=== PATIENT | female | born 1975 | race Caucasian/White ===

== ENCOUNTER → 2017-05-30 12:50 | Outpatient (CLI) | payer BC, SELFPAY ==
--- NOTE | 2017-05-30 12:58 | MM_ITS ---
MM Dig mamm BI DX w/CAD COMPARISON: 05/02/2016, 05/13/2016, 11/28/2016 INDICATION: Follow-up abnormal mammogram/calcifications ORDERING PHYSICIAN: Jhonny Romo MD PATIENT AGE: 41 years TECHNIQUE: Standard images are performed of both breasts along with spot compression mag views and MLO views of the right breast FINDINGS: There is average fibroglandular tissue. Scattered benign-appearing calcifications are once again noted. Left breast: On the left there is a asymmetric area of increased density in the retroareolar region measuring 7 mm. This is not readily apparent on the previous exam probably related to overlapping fibroglandular tissue not readily apparent on the cc view. This was not recognized on the initial screening of the exam Benign-appearing calcifications are present on the left. Right breast: Scattered benign-appearing calcifications are noted. These are loosely scattered not significant changed compared to the previous exams and are felt to be benign. No new suspicious calcifications are evident. IMPRESSION: Benign findings. Calcifications are felt to be benign and not significant change. There is a area of asymmetric density in the retroareolar region on the left MLO view probably related to overlapping fibroglandular tissue this was not appreciated when the mammogram was checked. Would recommend patient return at no additional charge for spot compression views of this area and nipple profile in the MLO for confirmation. BI-RADS Category: 3 Benign Finding Short Term Follow-up RECOMMENDED FOLLOW-UP: IMM - IMMEDIATE FOLLOW-UP RECOMMENDED Recommend patient return at her convenience at no additional charge for spot views of the retroareolar region on the left and nipple profile MLO view to confirm the area of asymmetric density corresponds to fibroglandular tissue The right breast has a stable appearance with benign-appearing calcifications and can be followed in one year (A letter has been sent to the patient regarding results of the study.)
== END ==
PROVIDERS: Family Provider Family Medicine Addiction Medicine; PCP Family Medicine; Visit Provider Nurse Practitioner Obstetrics & Gynecology
DX: R92.8 Other abnormal and inconclusive findings on diagnostic imaging of breast (principal)
CPT/HCPCS: 77066

== ENCOUNTER → 2017-06-03 07:53 | Outpatient (CLI) | payer BC, SELFPAY ==
[2017-06-03 08:19] LABS: Basophils % 0.4 % (0.1-2.0); Eosinophils # 0.1 K/mm3 (0.0-0.4); Eosinophils % 1.3 % (0.1-12.0); Hematocrit 42.4 % (37.0-47.0); Hemoglobin 13.6 g/dL (12.2-16.2); Lymphocytes # 2.7 K/mm3 (0.7-4.5); Lymphocytes % 44.1 K/mm3 (10-50); Mean Corpuscular HGB Conc 32.1 g/dL (31.8-35.4); Mean Corpuscular Hemoglobin 30.6 pg (27.0-31.2); Mean Corpuscular Volume 95.4 fl (81-99); Monocytes # 0.4 K/mm3 (0.1-1.0); Monocytes % 5.7 % (1.7-9.3); Neutrophils % 48.5 % (37.0-80.0); Platelet Count 348 K/mm3 (142-424); Red Blood Count 4.44 M/mm3 (4.20-5.40); Red Cell Distribution Width 13.2 % (11.5-17.5); White Blood Count 6.2 K/mm3 (4.8-10.8)
[2017-06-03 08:44] LABS: Hemoglobin A1C 5.5 % (0.0-7.0)
[2017-06-03 09:09] LABS: Alanine Aminotransferase 18 U/L (12-78); Albumin Level 3.8 gm/dL (3.4-5.0); Albumin/Globulin Ratio 1.2 (1.1-1.8); Alkaline Phosphatase 78 U/L (46-116); Anion Gap 14.2 mEq/L (5-15); Aspartate Amino Transferase 14 U/L (15-37); Bilirubin,Total 0.6 mg/dL (0.2-1.0); Blood Urea Nitrogen 17 mg/dL (7-18); Calcium 8.7 mg/dL (8.5-10.1); Carbon Dioxide 26 mmol/L (21.0-32.0); Chloride 106 mmol/L (98-107); Chol/HDL Ratio 3.1 (1-3.5); Cholesterol 175 mg/dL (140-200); Creatinine,Serum 0.67 mg/dL (0.55-1.02); Estimated Glomerular Filt Rate 97 ml/min (>60); GFR (African American) 117 ML/MIN (>60); Globulin 3.2 gm/dl (1.3-3.2); Glucose 96 mg/dL (74-106); HDL Cholesterol 57 mg/dL (29-89); LDL Cholesterol 99 mg/dL (0-130); Potassium 4.2 mmoL/L (3.5-5.1); Sodium 142 mmol/L (136-145); Thyroid Stimulating Hormone 1.39 uIU/ml (0.358-3.740); Triglycerides 97 mg/dL (30-200); VLDL Cholesterol 19 mg/dL (0-40)
[2017-06-06 06:03] LABS: Vitamin D 25 Hydroxy 25.2 ng/mL (30.0-100.0)
[2017-06-06 06:04] LABS: Vitamin B12 431 pg/mL (232-1245)
== END ==
PROVIDERS: PCP Family Medicine; Visit Provider Family Medicine
DX: E03.9 Hypothyroidism, unspecified (principal); E78.2 Mixed hyperlipidemia; E53.8 Deficiency of other specified B group vitamins; Z68.43 Body mass index [BMI] 50.0-59.9, adult; Z13.21 Encounter for screening for nutritional disorder
CPT/HCPCS: 36415; 80053; 80061; 82607; 82652; 83036; 84443; 85025

== ENCOUNTER → 2017-06-19 12:58 | Outpatient (CLI) | payer BC, SELFPAY ==
--- NOTE | 2017-06-19 15:11 | US_ITS ---
US breast LT complete Additional mammographic images left breast: COMPARISON: 05/30/2017 INDICATION: Asymmetric density in the retroareolar region on the left. ORDERING PHYSICIAN: Jhonny Romo MD PATIENT AGE: 41 years TECHNIQUE: The patient returns for spot compression views of the an asymmetric density in the left retroareolar region. FINDINGS: There is overall increase in fibroglandular tissue compared to an older ultrasound of 05/02/2016. Asymmetric density is present in the retroareolar region with some benign-appearing calcifications. This compressed out on the cc spot compression view but persisted on the MLO view and ML view highly related to overlying fibroglandular tissue. Left breast ultrasound: No sonographic abnormality is evident. Specifically, there is no obvious mass in the retroareolar region. IMPRESSION: Probably benign findings involving both breasts. No convincing evidence of malignancy BI-RADS Category: 3 Benign Finding Short Term Follow-up RECOMMENDED FOLLOW-UP: 6M - 6 MONTH FOLLOW-UP; Bilateral 6 month mammographic follow-up (A letter has been sent to the patient regarding results of the study.)
== END ==
PROVIDERS: Family Provider Family Medicine Addiction Medicine; PCP Family Medicine; Visit Provider Nurse Practitioner Obstetrics & Gynecology
DX: R92.8 Other abnormal and inconclusive findings on diagnostic imaging of breast (principal)
CPT/HCPCS: 76641

== ENCOUNTER → 2017-06-19 14:47 | Outpatient (POV) | payer BC, SELFPAY | PROVIDERS: Family Provider Family Medicine Addiction Medicine; PCP Family Medicine; Visit Provider Nurse Practitioner Acute Care | DX: Z00.00 Encounter for general adult medical examination without abnormal findings (principal) ==

== ENCOUNTER → 2018-03-12 13:36 | Outpatient (CLI) | payer BC, SELFPAY ==
--- NOTE | 2018-03-12 13:38 | MM_ITS ---
MM Dig mamm BI DX w/CAD INDICATION: Follow-up abnormal mammogram ORDERING PHYSICIAN: Jhonny Romo MD PATIENT AGE: 42 years COMPARISON: 05/30/2017, 05/02/2016 TECHNIQUE: Standard images performed along with spot compression Bar spot compression views. FINDINGS: Right breast: Average fibroglandular tissue. There are scattered loosely clustered calcifications in the retroareolar region and lateral aspect of the right breast do not appear significantly changed and are probably benign. Some of these calcifications do appear to layer as milk of calcium. No malignant appearing mass or malignant appearing microcalcification. Left breast: No malignant appearing mass or malignant appearing microcalcification. Previously noted retroareolar density is less apparent on today's images and was felt to be due to overlying fibroglandular tissue. IMPRESSION: No evidence of malignancy. Benign findings. BI-RADS Category: 2 Benign Finding(s) RECOMMENDED FOLLOW-UP: 1YR - 1 YEAR FOLLOW-UP (A letter has been sent to the patient regarding results of the study.)
== END ==
PROVIDERS: PCP Family Medicine; Visit Provider Nurse Practitioner Obstetrics & Gynecology
DX: R92.8 Other abnormal and inconclusive findings on diagnostic imaging of breast (principal)
CPT/HCPCS: 77066

== ENCOUNTER → 2018-07-27 13:58 | Outpatient (CLI) | payer BC, SELFPAY ==
--- NOTE | 2018-07-27 14:03 | NVE_ITS ---
Venous Exam IMPRESSIONS No evidence of deep or superficial vein thrombosis involving the veins of the right upper extremity History: Right upper extremity pain. Swelling in the right upper extermity. Risk factors: Family history of deep vein thrombosis. Hypertension. 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 Patient states she recently was "adjusted" by a chiropractor and had problems in neck and right arm since. There is some noted edema in the right antecubital region with streaking visualized. Right upper extremity venous duplex. Doppler flow study including spectral analysis, color and bruno scale imaging. Location: Vascular laboratory. Patient status: Outpatient. CRITICAL FINDINGS - Reported to: Dr. Ambrose - Read back and verified. - 07/27/18 - 14:40 - RLE negative for DVT or SVT Tables: Venous flow and imaging: + + + Location Flow properties + + + Right internal jugular Normal phasicity; spontaneous; compressible + + + Right subclavian Normal phasicity; spontaneous; normal augmentation; compressible + + + Right axillary Normal phasicity; spontaneous; normal augmentation; compressible + + + Right brachial Normal phasicity; spontaneous; normal augmentation; compressible + + + Right cephalic Normal phasicity; spontaneous; normal augmentation; compressible + + + Right basilic Normal phasicity; spontaneous; normal augmentation; compressible + + + Right radial Compressible + + + Right ulnar Compressible + + + Left subclavian Normal phasicity; spontaneous; normal augmentation; compressible + + + (Report amended ) Electronically signed by: Luis Brandon [id number]
== END ==
PROVIDERS: PCP Family Medicine; Visit Provider Emergency Medicine
DX: M79.89 Other specified soft tissue disorders (principal)
CPT/HCPCS: 93971

== ENCOUNTER → 2019-03-11 09:17 | Outpatient (CLI) | payer BC, SELFPAY | PROVIDERS: PCP Family Medicine; Visit Provider Urology | DX: R07.9 Chest pain, unspecified (principal); I11.9 Hypertensive heart disease without heart failure; R06.83 Snoring; R53.83 Other fatigue; R40.0 Somnolence; Z86.79 Personal history of other diseases of the circulatory system | CPT/HCPCS: G0399 ==

== ENCOUNTER → 2019-03-18 12:49 | Outpatient (CLI) | payer BC, SELFPAY ==
[2019-03-18 14:20] LABS: Anion Gap 14.2 mEq/L (5-15); Blood Urea Nitrogen 19 mg/dL (7-18); Carbon Dioxide 26 mmol/L (21.0-32.0); Chloride 104 mmol/L (98-107); Creatinine,Serum 0.81 mg/dL (0.55-1.02); Estimated Glomerular Filt Rate 77 ml/min (>60); GFR (African American) 93 ML/MIN (>60); Glucose 100 mg/dL (74-106); Potassium 4.2 mmoL/L (3.5-5.1); Sodium 140 mmol/L (136-145)
== END ==
PROVIDERS: Visit Provider Urology
DX: R07.9 Chest pain, unspecified (principal); I11.9 Hypertensive heart disease without heart failure; E78.5 Hyperlipidemia, unspecified; Z86.79 Personal history of other diseases of the circulatory system
CPT/HCPCS: 36415; 80048

== ENCOUNTER → 2019-07-02 14:07 | Outpatient (CLI) | payer BC, SELFPAY ==
[2019-07-02 14:27] LABS: Adenovirus F 40/41, stool Not Detected (NotDetected); Astrovirus Not Detected (NotDetected); Campylobacter Not Detected (NotDetected); Clostridium Difficile A/B, PCR Not Detected (NotDetected); Cryptosporidium Not Detected (NotDetected); Cyclospora Cayetanesis Not Detected (NotDetected); Entamoeba histolytica Not Detected (NotDetected); Enteroaggregative E coli Not Detected (NotDetected); Enteropathogenic E coli Not Detected (NotDetected); Enterotoxigenic E coli Not Detected (NotDetected); Giardia lamblia Not Detected (NotDetected); Norovirus Not Detected (NotDetected); Plesimonas Shigalloides, PCR Not Detected (NotDetected); Rotavirus A Not Detected (NotDetected); Salmonella, PCR Not Detected (NotDetected); Sapovirus Not Detected (NotDetected); Shiga-like toxin E coli Not Detected (NotDetected); Shigella Enterovasive E coli Not Detected (NotDetected); Vibrio Cholerae Not Detected (NotDetected); Vibrio, PCR Not Detected (NotDetected); Yersinia Entercolitica, PCR Not Detected (NotDetected)
== END ==
PROVIDERS: Visit Provider Nurse Practitioner Family
DX: R19.7 Diarrhea, unspecified (principal)
CPT/HCPCS: 87507

== ENCOUNTER → 2019-07-12 09:30 | Outpatient (CLI) | payer BC, SELFPAY ==
--- NOTE | 2019-07-12 09:38 | CT_ITS ---
PROCEDURE: CT ABDOMEN WO CON CLINICAL HISTORY: NAUSEA,ABD PAIN COMPARISON: ABDPELW/O CT ABD PELVIS W/O CONTRAST from 07/31/2016 TECHNIQUE: Oral Contrast: Readi-Cat was given IV Contrast: None Axial images obtained with sagittal and coronal reformats. All CT scans at the facility use one or more dose reduction, viz: automated exposure control, ma/kV adjustment per patient size (including targeted exams where dose is matched to indication, i.e. head), or iterative reconstruction technique. Axial images obtained with sagittal and coronal reformats. All CT scans at the facility use one or more dose reduction, viz: automated exposure control, ma/kV adjustment per patient size (including targeted exams where dose is matched to indication, i.e. head), or iterative reconstruction technique. . FINDINGS: Scans through the lower chest show stable subpleural calcified granuloma right costophrenic angle. The lower lung amezquita are clear. 1 the liver and spleen appear normal. 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 There is a small to moderate-sized sliding hiatal hernia. The patient is post cholecystectomy. Pancreas appears normal. The adrenal glands are normal. The kidneys are normal in size and no calculi and there is no obstructive uropathy. The visualized portion of the contrast filled small bowel appears normal. Visualized portion of the ascending and descending colon appear normal. There is a small umbilical hernia containing fat only basically stable and unchanged in appearance from the previous exam. IMPRESSION: Findings as described, no acute abdominal pathology identified Dictated by: Dr. Jonas Hathaway MD 07/12/2019 10:[address] Jonas Hathaway MD in [place] 07/12/2019 10:40
== END ==
PROVIDERS: PCP Family Medicine; Visit Provider Nurse Practitioner Family
DX: R10.9 Unspecified abdominal pain (principal); R11.0 Nausea
CPT/HCPCS: 74150

== ENCOUNTER → 2019-08-12 14:03 | Outpatient (CLI) | payer BC, SELFPAY ==
[2019-08-12 15:18] LABS: Basophils % 0.4 % (0.1-2.0); Eosinophils % 0.5 % (0.1-12.0); Hematocrit 35.2 % (37.0-47.0); Hemoglobin 11.3 g/dL (12.2-16.2); Mean Corpuscular HGB Conc 32.1 g/dL (31.8-35.4); Mean Corpuscular Hemoglobin 29.6 pg (27.0-31.2); Mean Corpuscular Volume 92.1 fl (81-99); Mean Platelet Volume 7.8 fl (7.4-10.4); Monocytes # 0.4 K/mm3 (0.1-1.0); Monocytes % 5.5 % (1.7-9.3); Neutrophils # 4.2 K/mm3 (1.8-7.8); Neutrophils % 63.6 % (37.0-80.0); Platelet Count 283 K/mm3 (142-424); Red Blood Count 3.83 M/mm3 (4.20-5.40); Red Cell Distribution Width 14.2 % (11.5-17.5); White Blood Count 6.7 K/mm3 (4.8-10.8)
[2019-08-12 16:34] LABS: Chloride 103 mmol/L (98-107); Potassium 4.1 mmoL/L (3.5-5.1); Sodium 136 mmol/L (136-145)
[2019-08-12 16:37] LABS: Anion Gap 9.1 mEq/L (5-15); Blood Urea Nitrogen 14 mg/dl (7-17); Carbon Dioxide 28 mmol/L (22.0-30.0); Estimated Glomerular Filt Rate 109 ml/min (>60); GFR (African American) 131 ML/MIN (>60)
[2019-08-12 16:38] LABS: Calcium 8.9 mg/dl (8.4-10.2); Glucose 84 mg/dl (74-100)
[2019-08-12 16:51] LABS: Free T4 (Free Thyroxine) 1.11 ng/dl (0.78-2.19)
[2019-08-12 17:00] LABS: Troponin I < 0.01 ng/ml (0.00-0.034)
[2019-08-12 17:15] LABS: Thyroid Stimulating Hormone 3.55 uIU/mL (0.465-4.68)
== END ==
PROVIDERS: Visit Provider Urology
DX: R00.2 Palpitations (principal); R07.9 Chest pain, unspecified; E78.2 Mixed hyperlipidemia; I11.9 Hypertensive heart disease without heart failure; Z86.79 Personal history of other diseases of the circulatory system
CPT/HCPCS: 36415; 80048; 84439; 84443; 84484; 85025; 93270

== ENCOUNTER → 2019-09-09 07:52 | Outpatient (CLI) | payer BC, SELFPAY ==
--- NOTE | 2019-09-09 07:56 | CA_ITS ---
APPROVED REPORT EXAM: Comprehensive 2D, Doppler, and color-flow Echocardiogram Claim Manager: Felicia Morgan RDCS Ht: 5 ft 6 in Wt: 247lbs BSA: 2.19 BP: 128/79 mmHg Indications: PALPS,CP,HTN,HLP 2D Dimensions LVOT 1.96 cm (M/F) 1.5-2.5 M-Mode Dimensions RVDd 3.42 cm (0.9-2.6) LVDd 5.25 cm (3.5-5.7) LVDs 3.76 cm (3.5-5.7) IVSd 0.76 cm (0.6-1.1) PWd 0.76 cm (0.6-1.1) EF (Teich) 54.40% FS 28.40% EDV (Teich) 132.40 mL ESV (Teich) 60.40 mL LV Diastology E/A Ratio 1.42 Mitral Valve MV A Velocity 53.00 (40-130 cm/s) Left Ventricle Left atrium is normal size, left ventricle is normal size, there is no concentric left ventricular hypertrophy, visually estimated ejection fraction 55% with no regional wall motion abnormality, diastolic parameters are within normal range. Right Ventricle Right atrium and right ventricle are mildly enlarged with normal contractility. Aortic Valve Aortic valve is grossly normal, there is no aortic stenosis or aortic insufficiency. Mitral Valve Mitral valve is grossly normal, there is mild mitral regurgitation. Tricuspid Valve Tricuspid valve is grossly normal, there is mild tricuspid regurgitation, calculated right ventricular systolic pressure is 48 mmHg. Pulmonic Valve Pulmonic valve is poorly visualized. Great Vessels Aortic root is normal size. Pericardium No significant pericardial effusion noted. Conclusion 1. Normal left ventricular size, preserved left ventricular systolic function, visually estimated ejection fraction of 55% with no regional wall motion abnormality, diastolic parameters are within normal range. 2. Mildly enlarged right ventricle with normal contractility. 3. Mild mitral and tricuspid regurgitation, calculated right ventricular systolic pressure is 48 mmHg. 4. No significant pericardial effusion noted. Electronically signed by : Wai Mensah, 09/09/2019 19:10:10
== END ==
PROVIDERS: PCP Family Medicine; Visit Provider Urology
DX: R00.2 Palpitations (principal); R00.1 Bradycardia, unspecified; I11.9 Hypertensive heart disease without heart failure; E78.5 Hyperlipidemia, unspecified; I10 Essential (primary) hypertension
CPT/HCPCS: 93306

== ENCOUNTER → 2019-09-25 13:15 | Outpatient (CLI) | payer BC, SELFPAY ==
[2019-09-27 14:15] LABS: Immunoglobulin A, Qn 148 mg/dL (87-352)
[2019-09-27 19:14] LABS: Tissue Transglutaminase IgA Ab <2 U/mL (0-3); Tissue Transglutaminase IgG Ab 4 U/mL (0-5)
[2019-09-30 12:26] LABS: Strongyloides IgG Antibody Positive (Negative)
== END ==
PROVIDERS: Visit Provider Nurse Practitioner Acute Care
DX: K52.9 Noninfective gastroenteritis and colitis, unspecified (principal)
CPT/HCPCS: 36415; 82784; 83516; 86682

== ENCOUNTER → 2019-09-26 17:55 | Outpatient (CLI) | payer BC, SELFPAY ==
[2019-10-10 07:19] LABS: Calprotectin, Fecal 59 ug/g (0-120)
== END ==
PROVIDERS: Visit Provider Nurse Practitioner Acute Care
DX: K52.9 Noninfective gastroenteritis and colitis, unspecified (principal)
CPT/HCPCS: 83993

== ENCOUNTER 2019-12-13 20:30 | Emergency (ER) | payer BC, SELFPAY ==
[2019-12-13 20:31] VITALS: BP 147/90; PULSE 105; RESP 16; TEMP 36.7; O2SAT 98; BMI 38.7
[2019-12-13 20:46] VITALS: BP 147/90; PULSE 105; RESP 16; TEMP 36.7; O2SAT 98; BMI 38.5
--- NOTE | 2019-12-13 20:48 | XR_ITS ---
PROCEDURE: XR KUB CLINICAL INDICATION: IMPACTION COMPARISON: CT CT ABDOMEN WO CON from 07/12/2019 FINDINGS: The bowel gas pattern is nonspecific. There are nondistended air-filled loops of small bowel. There is a mild amount of retained colonic feces throughout the colon in the rectosigmoid region. The rectosigmoid measures approximately 7.5 cm in transverse dimension. IMPRESSION: Constipation Dictated by: Luis Brandon MD 12/14/2019 08:31 Luis Brandon MD in [place] 12/14/2019 08:31
[2019-12-13 21:19] VITALS: BP 147/90; PULSE 105; RESP 16; TEMP 36.7; O2SAT 98
--- NOTE | 2019-12-13 21:32 | HMH.EDUTC ---
[facility] [place] Disposition Clinical Impression: Abdominal pain Qualifiers: Abdominal location: generalized Qualified Code(s): R10.84 - Generalized abdominal pain Disposition: Home, Self-Care Condition on Discharge: Good Instructions: Constipation Additional Instructions: Follow up with your GI doctor. Make sure you don't take anymore of the bentyl or pepto-bismol Follow up with your primary care doctor. IF YOU SYMPTOMS WORSEN ANY, PLEASE RETURN TO THE ER [facility] Referrals: Montserrat Combs MD [Primary Care Provider] - Forms: Work/School Release Time of Disposition: 21:38 Medical Decision Making - Medical Records Medical records reviewed: No: I reviewed the patient's medical records. - Dru Inquiry Pt receiving controlled substance: No Vital Signs: 12/13/19 20:31 12/13/19 20:46 12/13/19 21:19 Temperature 98.0 F 98.0 F 98.0 F Temperature Source Oral Oral Oral Pulse Rate 105 H Pulse Rate [Left Radial] 105 H 105 H Respiratory Rate 16 16 16 Blood Pressure 147/90 H Blood Pressure [Right Arm] 147/90 H 147/90 H Blood Pressure Mean [Right Arm] 109 109 Blood Pressure Source Automatic Cuff Blood Pressure Source [Right Arm] Automatic Cuff Automatic Cuff Blood Pressure Position Sitting Blood Pressure Position [Right Arm] Sitting Sitting 02 Sat by Pulse Oximetry 98 98 Oxygen Delivery Method Room Air Room Air Room Air Orders (Tests/Meds): ORDERS Category Date Time Status XR KUB Stat Exams 12/13/19 20:48 Taken - Radiology Data #1 Image(s): Abdomen Image Reviewed: Yes I reviewed the patient's radiology image Preliminary Findings: Abnormal no blockage noted. [facility] [place] HPI - General Stated complaint: impacted Time Seen by Provider: 12/13/19 21:05 Mode of Arrival: Ambulatory Source of Information: Patient Limitations: No Limitations Description of Symptoms (Recalled from Triage Doc. by RN): pt stated she had a BM yesterday but today feels like she is constipated and cant have a BM. pt staed for the last 3 hours she has been trying to digitally help herself but has only gotten loose stool. pt stated her rectum is sore now and she isnt sure what meds she needs to help. pt denies abd. pain and reports soreness at her rectum. HEENT Symptoms (Recalled from RN notes): No Resp Symptoms (Recalled from RN notes): No Skin Symptoms (Recalled from RN notes): No MS Symptoms (Recalled from RN notes): No Functional Status (Recalled from RN notes): wnl - History of Present Illness Provider Complaint: She states that she feels like she is impacted with stool. She has been feeling like this since earlier today. She has a history of chronic diarrhea. She was started on bentyl by her GI specialist at 2 weeks ago. She states that around 5 days ago her diarrhea stopped, so she stopped taking the bentyl. But since then she has not had any bowel movements. She states that she feels bloated and very gassy. She has been passing a small amount of gas. - Related Data Home Medications Medication Instructions Recorded Confirmed atenoloL [Atenolol 25mg Tab] 25 mg PO DAILY 11/22/17 09/23/19 Citalopram Hydrobromide 20 mg PO DAILY 03/28/18 09/23/19 [Citalopram HBr] Levothyroxine Sodium 150 mcg PO DAILY 03/28/18 09/23/19 [Levothyroxine 150mcg (0.15mg) Tab] pantoprazole 20 mg tablet,delayed 40 mg PO DAILY tab 08/12/19 09/23/19 release cholestyramine (with sugar) 4 gram 4 g PO DAILY each 09/23/19 09/23/19 powder for susp in a packet Allergies Allergy/AdvReac Type Severity Reaction Status Date / Time Influenza Virus Vaccines Allergy Mild Verified 09/23/19 13:06 [INFLUENZA VIRUS VACCINES] Iodinated Contrast Media Allergy Unknown Verified 09/23/19 13:06 [Iodinated Contrast Media - IV Dye] iodine Allergy Unknown Verified 09/23/19 13:06 Iodamide Meglumine Allergy Unknown Uncoded 09/23/19 13:06 - Worker's Comp Is this a Worker's Comp case?: No H History - Hepat
== END 2019-12-13 21:41 | disposition home or self-care (01) ==
PROVIDERS: Emergency Provider Nurse Practitioner Family; PCP Family Medicine
DX: R10.84 Generalized abdominal pain (principal); K59.00 Constipation, unspecified; R91.1 Solitary pulmonary nodule; I27.20 Pulmonary hypertension, unspecified; E03.9 Hypothyroidism, unspecified; K21.9 Gastro-esophageal reflux disease without esophagitis; E78.5 Hyperlipidemia, unspecified; Z88.7 Allergy status to serum and vaccine; Z79.899 Other long term (current) drug therapy
CPT/HCPCS: 74018; 99201

== ENCOUNTER → 2020-01-06 09:51 | Outpatient (CLI) | payer BC, SELFPAY ==
--- NOTE | 2020-01-06 09:51 | MM_ITS ---
PROCEDURE: MM DIG SCREENING MAMM BI W/CAD Digital Breast Tomosynthesis Included CLINICAL INDICATION: screening xmg There is no personal or family history of breast cancer. COMPARISON: MG DMDXUR DIG MAMM-DX UNI-RT W/CAD from 11/28/2016 MG DXBI MM Dig mamm BI DX w/CAD from 05/30/2017 MG DXBI MM Dig mamm BI DX w/CAD from 03/12/2018 TECHNIQUE: Standard CC and MLO images and 3D Tomosynthesis was obtained. R2 CAD reviewed. FINDINGS: Scattered fibroglandular densities are seen throughout both breasts and the findings are bilateral and symmetrical. There are stable scattered microcalcifications central portion right breast. There is no associated mass or architectural distortion. There is no suspicious lesion in either breast and no suspicious microcalcifications. IMPRESSION: Fibrofatty parenchyma with no suspicious lesions seen BI-RAD Category: 2 Benign Finding(s) FOLLOW-UP: 1YR 1 Year Follow-up (A letter has been sent to the patient regarding results of the study.) Dictated by: Dr. Jonas Hathaway MD 01/12/2020 12:42 Dr. Jonas Hathaway MD in [place] 01/12/2020 12:42
== END ==
PROVIDERS: PCP Family Medicine; Visit Provider Nurse Practitioner Obstetrics & Gynecology
DX: Z12.31 Encounter for screening mammogram for malignant neoplasm of breast (principal)
CPT/HCPCS: 77063; 77067

== ENCOUNTER 2020-03-30 13:30 | Outpatient (RCR) | payer BC, SELFPAY ==
--- NOTE | 2020-02-18 18:02 | HMH.PTOPEV ---
PT Outpatient Evaluation Rehab PT Outpatient Evaluation Start: 02/18/20 17:06 Freq: Status: Active Protocol: Document 02/18/20 17:11 CHARLESCASIMIRO (Rec: 02/18/20 18:02 RICO [id number]) Electronically Signed By Isma Hanson PT 02/18/20 17:11 Outpatient Therapy Subjective History Subjective History This is the initial Physical Therapy evaluation for Jessie Nicole. Pt is a 44 y/o female referred to PT for c/o L shoulder blade, LUE and L sided neck pain. Pt reports she has had L shoulder blade and shoulder pain for several years but reports the last few months the pain has become constant. Pt does not remember any trauma that originally caused shoulder pain or recent trauma that has caused pain to become chronic and constant. Pt reports sometimes she has paresthesia into L hand, specifically the last 2 fingers. Chief Complaint Pain,Spasms,Stiff,Paresthesia, Weakness Symptom Type Ache,Throb,Sharp,Dull,Numbness ,Tingling,Shooting Symptoms Relieved By OTC Meds Symptoms Aggravated By Sitting Prior Functional Limitations None Current Functional Limitations Desk Work/Reading,Driving Symptom Description Constant but Variable Level of pain today (0-10) 3 Pain scale - at its best (0-10) 0 Pain scale - at its worst (0-10) 5 Cervical Eval Palpation Cervical/Thoracic Palpation Findings Tenderness,Spasm,Trigger Point AROM Cervical Spine Extension Active Range of 50 Motion (degrees) Cervical Spine Flexion Active Range of 50 Motion (degrees) Cervical Spine Right Lateral Flexion 40 Active Range of Motion (degrees) Cervical Spine Left Lateral Flexion 30 w/ pain Active Range of Motion (degrees) Cervical Spine Right Rotation Active 70 Range of Motion (degrees) Cervical Spine Left Rotation Active 70 Range of Motion (degrees) MMT Left Deltoid (C5) 5 Normal Biceps Brachii Strength Grade 4- Good- Wrist Extension Strength Grade 4- Good- Triceps Brachii Strength Grade 4- Good- Wrist Flexion Strength Grade 4- Good- Right Deltoid (C5) 5 Normal Biceps Brachii Strength Grade 5 Normal Wrist Extension Strength Grade 5
== END 2020-03-30 13:35 | disposition home or self-care (01) ==
LOC: PT 13:30
PROVIDERS: PCP Family Medicine; Visit Provider Family Medicine
DX: M60.9 Myositis, unspecified (principal)
CPT/HCPCS: 97010; 97012; 97014; 97110; 97163; G0283

== ENCOUNTER 2020-05-03 13:07 | Emergency (ER) | payer BC, SELFPAY ==
[2020-05-03 13:10] VITALS: BP 125/65; PULSE 65; RESP 20; TEMP 36.8; O2SAT 97; BMI 38.7
--- NOTE | 2020-05-03 13:34 | HMH.EDUTC ---
[facility] [place] Disposition Clinical Impression: Fluid level behind tympanic membrane of left ear Disposition: Home, Self-Care Condition on Discharge: Good Instructions: DI for Ear Pain-Adult, Methylprednisolone Additional Instructions: Make sure if no improvement you follow up with your Family Doctor for possible antibiotics if needed We will watch and wait to see if Medrol Dose pack helps to removed fluid in ear Over the counter Motrin and/or Tylenol as directed on package if your Doctor has told your that you can take it Return if needed Flonase 1-2 sprays in each nostril daily Over the counter Allergy medication daily may help with nasal drainage and allergy symptoms Straight to ER if any life threatening symptoms Prescriptions: methylPREDNISolone [Medrol 4mg tab] 4 mg PO DIRECTED #21 tab Transmission Status: Sent to [facility] #[id number] Referrals: Montserrat Combs MD [Primary Care Provider] - As needed Time of Disposition: 13:45 Medical Decision Making - Dru Inquiry Pt receiving controlled substance: No Dru was queried for this patient: No Vital Signs: 05/03/20 13:10 Temperature 98.3 F Temperature Source Oral Pulse Rate [Right Brachial] 65 Respiratory Rate 20 Blood Pressure [Right Arm] 125/65 Blood Pressure Mean [Right Arm] 85 Blood Pressure Source [Right Arm] Automatic Cuff Blood Pressure Position [Right Arm] Sitting 02 Sat by Pulse Oximetry 97 Oxygen Delivery Method Room Air [facility] [place] HPI - General Stated complaint: ear pain Time Seen by Provider: 05/03/20 13:35 Mode of Arrival: Ambulatory Source of Information: Patient Limitations: No Limitations Description of Symptoms (Recalled from Triage Doc. by RN): PATIENT C/O LEFT EAR PAIN X 2 WEEKS. STATES PAIN HAS WORSENED AND IS NOW AFFECTING THE SIDE OF HER FACE. REPORTS MORE FREQUENT HEADACHES THAN NORMAL HEENT Symptoms (Recalled from RN notes): Yes Resp Symptoms (Recalled from RN notes): No Skin Symptoms (Recalled from RN notes): No MS Symptoms (Recalled from RN notes): No Functional Status (Recalled from RN notes): WNL - History of Present Illness Provider Complaint: Patient state that she has been having pain and pressure like feeling in her left ear State that when she coughs or lays on that side she has pain States that feels like it is full and has fluid in it When she moves her head she feels like something is moving in her ear - Related Data Home Medications Medication Instructions Recorded Confirmed atenoloL [Atenolol 25mg Tab] 25 mg PO DAILY 11/22/17 01/06/20 Citalopram Hydrobromide 20 mg PO DAILY 03/28/18 01/06/20 [Citalopram HBr] Levothyroxine Sodium 150 mcg PO DAILY 03/28/18 01/06/20 [Levothyroxine 150mcg (0.15mg) Tab] pantoprazole 20 mg tablet,delayed 40 mg PO DAILY tab 08/12/19 01/06/20 release cholestyramine (with sugar) 4 gram 4 g PO DAILY each 09/23/19 01/06/20 powder for susp in a packet colesevelam 625 mg tablet 625 mg PO tab 01/06/20 01/06/20 dicyclomine 10 mg capsule 10 mg PO cap 01/06/20 01/06/20 ivermectin 3 mg tablet 3 mg PO tab 01/06/20 01/06/20 Previous Rx's Medication Instructions Recorded methylPREDNISolone [Medrol 4mg 4 mg PO DIRECTED #21 tab 05/03/20 tab] Allergies Allergy/AdvReac Type Severity Reaction Status Date / Time Influenza Virus Vaccines Allergy Mild Verified 01/06/20 10:51 [INFLUENZA VIRUS VACCINES] Iodinated Contrast Media Allergy Unknown Verified 01/06/20 10:51 [Iodinated Contrast Media - IV Dye] iodine Allergy Unknown Verified 01/06/20 10:51 Iodamide Meglumine Allergy Unknown Uncoded 01/06/20 10:51 - Worker's Comp Is this a Worker's Comp case?: No H History - Hepatitis A Screen Drug use history?: No High risk sexual behaviors?: No History of sexually transmitted infection?: No Currently employed?: No Childcare worker?: No Do you have indoor plumbing?: Yes Do you have electricity?: Yes Attestation statement:: Aden lazcano
[2020-05-03 13:47] VITALS: BP 125/65; PULSE 65; RESP 20; TEMP 36.8; O2SAT 97
== END 2020-05-03 13:52 | disposition home or self-care (01) ==
PROVIDERS: Emergency Provider Nurse Practitioner; PCP Family Medicine
DX: H65.92 Unspecified nonsuppurative otitis media, left ear (principal); E03.9 Hypothyroidism, unspecified; K21.9 Gastro-esophageal reflux disease without esophagitis; E78.5 Hyperlipidemia, unspecified; I10 Essential (primary) hypertension; Z88.7 Allergy status to serum and vaccine; Z79.899 Other long term (current) drug therapy
CPT/HCPCS: 99202; G0463

== ENCOUNTER 2020-08-23 09:07 | Emergency (ER) | payer BC, SELFPAY ==
[2020-08-23 09:10] VITALS: BP 100/70; PULSE 50; RESP 18; TEMP 36.8; O2SAT 96; BMI 38.7
[2020-08-23 09:32] LABS: UTC Strep Screen (Rapid) Negative (Negative)
--- NOTE | 2020-08-23 09:34 | HMH.EDUTC ---
[facility] [place] Clinical Impression: Allergic rhinitis Qualifiers: Allergic rhinitis trigger: unspecified Allergic rhinitis seasonality: unspecified Qualified Code(s): J30.9 - Allergic rhinitis, unspecified Disposition: Home, Self-Care Condition on Discharge: Good Instructions: Allergic Rhinitis, DI for Allergic Rhinitis, GERD Diet, DI for Gastroesophageal Reflux Disease (GERD) Additional Instructions: *Monitor Temp, Over the counter Motrin or Tylenol as directed/as needed Tylenol every 4 hours and Motrin every 6 hours (as long as your family doctor has told you that you can take it) for fever or pain. and straight to ER if unable to lower temp less than 101.0 after medication given *Warm salt water gargles may help to soothe the throat *Throat Lozenges *Warm fluids like tea with honey may help to soothe the throat *Sleep elevated *Humidifier/Vaporizer *Flonase 2 sprays in each nostril daily but be aware that it may take 2-3 days before you notice improvement Your throat swab was sent for culture. Those results are typically sent to your primary care. Be sure to follow up in 2-3 days with your family doctor/primary care physician if no improvement so they can review those result and treat if necessary. If you don?t have a primary care doctor, I recommend you get one but in the mean time, you will have to return to a walk in clinic Follow up IMMEDIATELY for new or worsening symptoms or no Noticeable improvement over the next 48-72 hours. 911 for difficulty breathing or swallowing You were tested for today for COVID19 your test result should be back in the next 24-48 hours, you may call to the [facility] to see if your test results are back in the next 48 hours [phone] [facility] hours are 9am-9pm You was given a handout with instructions for Self Quarantine and Self isolation for while you wait on test results and what to do if they are positive If you are positive the Health Dept will be contacting you also Prescriptions: Fluticasone Propionate [Flonase 50mcg nasal spray 16gm] 1 spr NS DAILY #1 bottle Transmission Status: Received by [facility] #[id number] methylPREDNISolone [Medrol 4mg tab] 4 mg PO DIRECTED #21 tab Transmission Status: Received by [facility] # Referrals: TimocasaNicole kidd [Primary Care Provider] - As needed Time of Disposition: 09:48 Medical Decision Making - Dru Inquiry Pt receiving controlled substance: No Dru was queried for this patient: No Vital Signs: 08/23/20 09:10 08/23/20 09:46 Temperature 98.2 F 98.2 F Temperature Source Oral Pulse Rate 50 L Pulse Rate [Left Brachial] 50 L Respiratory Rate 18 18 Blood Pressure 100/70 L Blood Pressure [Left Arm] 100/70 L Blood Pressure Mean [Left Arm] 80 Blood Pressure Source [Left Arm] Automatic Cuff Blood Pressure Position [Left Arm] Sitting 02 Sat by Pulse Oximetry 96 Oxygen Delivery Method Room Air - Lab Data Lab results reviewed: Yes: I reviewed the patient's lab results. Lab Results 08/23/20 09:22: Strep Scn Rapid Clinic Negative Orders (Tests/Meds): ORDERS Category Date Time Status Covid-19 Nasal PCR ([facility]) Routine Lab 08/23/20 09:37 Received Strep Screen Confirmation Stat Micro 08/23/20 09:22 Received Medical Decision Narrative: Discussed with patient about heart rate being in 50's and transfer to the ED and patient declined states that she has history of bradycardia and is currently being seen for it [facility] [place] - General Stated complaint: sorethroat Time Seen by Provider: 08/23/20 09:35 Mode of Arrival: Ambulatory Source of Information: Patient Limitations: No Limitations Description of Symptoms (Recalled from Triage Doc. by RN): PATIENT C/O SORE THROAT AND DRAINING/ITCHING TO BILATERAL EARS X 1 WEEK HEENT Symptoms (Recalled from RN notes): Yes Resp Symptoms (Recalled from RN notes): No Skin Symptoms (Recalled from RN notes): No MS Symptoms (Recalled from RN notes): No F
[2020-08-23 09:46] VITALS: BP 100/70; PULSE 50; RESP 18; TEMP 36.8; O2SAT 96
== END 2020-08-23 09:50 | disposition home or self-care (01) ==
PROVIDERS: Emergency Provider Nurse Practitioner; PCP Family Medicine
DX: J30.9 Allergic rhinitis, unspecified (principal); K21.9 Gastro-esophageal reflux disease without esophagitis; I10 Essential (primary) hypertension; E78.5 Hyperlipidemia, unspecified; Z88.7 Allergy status to serum and vaccine; Z79.899 Other long term (current) drug therapy
CPT/HCPCS: 87880; 99202; G0463; U0003

== ENCOUNTER 2020-09-08 13:51 | Outpatient (RCR) | payer BC, SELFPAY | END 2020-09-08 13:55 | disposition home or self-care (01) | LOC: PT 13:51 | PROVIDERS: PCP Family Medicine; Visit Provider Family Medicine | DX: M54.9 Dorsalgia, unspecified (principal) | CPT/HCPCS: 97010; 97012; 97014; 97110; 97163; G0283 ==

== ENCOUNTER 2021-02-15 06:45 | Emergency (ER) | payer BC, SELFPAY ==
--- NOTE | 2021-02-15 06:43 | ECG_ITS ---
APPROVED REPORT Exam: Resting ECG HR:58 bpm ECG Measurements Heart Rate 58 AXES MS 160 P 45 QRSd 88 QRS 83 QT 430 T 55 QTc 422 Conclusion Sinus bradycardia Otherwise normal ECG Electronically signed by : Jonnathan Mosley MD 02/15/2021 21:37:50
[2021-02-15 06:46] VITALS: BP 135/77; PULSE 56; RESP 18; TEMP 36.8; O2SAT 98; BMI 39.6
--- NOTE | 2021-02-15 06:53 | XR_ITS ---
FINAL REPORT CLINICAL HISTORY: chest pressure, palpitations FINDINGS: The heart size is normal. The mediastinum is normal. There are chronic changes at the lung bases. There are no pleural effusions. There is no pneumothorax. There is a 7 mm intra-articular loose body in the right shoulder. IMPRESSION: No acute cardiopulmonary process Reviewed, Interpreted and Dictated by David Barajas MD Transcribed by Rigo Souza Authenticated by David Barajas MD on 02/15/2021 10:42:49 AM [facility]
--- NOTE | 2021-02-15 06:56 | HMH.EDGENADL ---
ED Disposition Clinical Impression: Chest pain Disposition: Home, Self-Care Condition on Discharge: Good Referrals: Montserrat Combs MD [Primary Care Provider] - - Critical Care Critical Care Time: No Attestation: On 02/15/21, the high probability of a clinically significant, sudden or life threatening deterioration of the following system(s) required my full and direct attention, intervention and personal management. The time I documented below is in addition to time spent performing reported procedures but includes the following listed in this critical care notation. Medical Decision Making - Dru Inquiry Pt receiving controlled substance: No Vital Signs: 02/15/21 06:46 Temperature 98.3 F Temperature Source Oral Pulse Rate [Right Brachial] 56 L Respiratory Rate 18 Blood Pressure [Right Arm] 135/77 Blood Pressure Mean [Right Arm] 96 Blood Pressure Source [Right Arm] Automatic Cuff Blood Pressure Position [Right Arm] Sitting 02 Sat by Pulse Oximetry 98 Oxygen Delivery Method Room Air - Lab Data Lab Results 02/15/21 06:50: WBC 5.7, RBC 4.41, Hgb 14.2, Hct 44.8, MCV 101.5 H, MCH 32.3 H, MCHC 31.8, RDW 12.8, Plt Count 348, MPV 7.6, Neut % (Auto) 46.5, Lymph % (Auto) 44.7, [place] % (Auto) 4.6, Eos % (Auto) 2.2, Baso % (Auto) 1.9, Neut # (Auto) 2.6, Lymph # (Auto) 2.5, [place] # (Auto) 0.3, Eos # (Auto) 0.1, Baso # (Auto) 0.1 02/15/21 06:50: Sodium 140, Potassium 3.8, Chloride 103, Carbon Dioxide 31 H, Anion Gap 9.8, BUN 16, Creatinine 0.80, Estimated Creat Clear 155, Estimated GFR 77, Est GFR ( Amer) 93, Glucose 112 H, Calcium 9.1, Troponin I < 0.01, TSH 8.18 H, Thyroxine (T4) 8.9 02/15/21 06:50: Total Bilirubin 0.7, Direct Bilirubin 0.1, Conjugated Bilirubin 0.0, Indirect Bilirubin 0.6, Unconjugated Bilirubin 0.6, AST 26, ALT 20, Alkaline Phosphatase 53, Total Protein 6.9, Albumin 4.2 Result diagrams: 02/15/21 06:50 02/15/21 06:50 Orders (Tests/Meds): ED MEDICATIONS Discontinued Medications Generic Name Dose Route Start Last Admin Trade Name Juan PRN Reason Stop Dose Admin Lidocaine 1 each 02/15/21 07:05 Lidocaine 5% Transdermal Patch TP 02/15/21 07:06 ONCE ONE ORDERS Category Date Time Status XR chest 2V Stat Exams 02/15/21 06:53 Taken Troponin I Q3H Lab 02/15/21 10:00 Ordered Troponin I Q3H Lab 02/15/21 13:00 Ordered Medical Decision Narrative: DDx includes but not limited to arrhythmia, ACS, lung mass, muscular sprain. PERC negative. Well appearing, NAD, denies current chest pain, on room air, afebrile. Will obtain labs and imaging to further assess. ekg shows sinus bradycardia, rate 58 bpm, normal qtc, normal axis. labs including cbc, cmp, trop unremarkable for acute and actionable findings. tsh elevated but free t4 wnl. cxr no focal opacity, large nodule or mass. Patient stable for discharge. Given ED return precautions. General Adult HPI - General Chief complaint: Arrhythmia/Palpitations Stated complaint: chest discomfort,palpitations Time Seen by Provider: 02/15/21 06:50 Mode of Arrival: Family Vehicle Limitations: No Limitations Description of Symptoms (Recalled from ER Triage Doc. by RN): pt presents with left arm pain that radiates downward towards thumb,heart palpitations and chest discomfort that she states feels different than normal , and reveals she has missed several doses of atenolol over the past 3 [place]. further states she takes maintenance thyroid medication as well, and misses those occasionally forgetting them. history of persistent runs of vtach per her statement and the reason behind her atenolol dosing. no nausea, no vomiting, no dyspnea at this time. - History of Present Illness HPI narrative: 45 yo female w/ hx pHTN, HTN, obesity, hypothyroidism, paroxysmal vtach, esophageal spasms presents for chest pain. patient reports 2 days of intermittent minutes long chest pain along left upper chest that feels like a throbbin
[2021-02-15 07:15] LABS: Basophils # 0.1 K/mm3 (0-0.2); Basophils % 1.9 % (0.1-2.0); Eosinophils # 0.1 K/mm3 (0.0-0.4); Eosinophils % 2.2 % (0.1-12.0); Hematocrit 44.8 % (37.0-47.0); Hemoglobin 14.2 g/dL (12.2-16.2); Lymphocytes # 2.5 K/mm3 (0.7-4.5); Lymphocytes % 44.7 % (10-50); Mean Corpuscular HGB Conc 31.8 g/dL (31.8-35.4); Mean Corpuscular Hemoglobin 32.3 pg (27.0-31.2); Mean Corpuscular Volume 101.5 fl (81-99); Mean Platelet Volume 7.6 fl (7.4-10.4); Monocytes # 0.3 K/mm3 (0.1-1.0); Monocytes % 4.6 % (1.7-9.3); Neutrophils # 2.6 K/mm3 (1.8-7.8); Neutrophils % 46.5 % (37.0-80.0); Platelet Count 348 K/mm3 (142-424); Red Blood Count 4.41 M/mm3 (4.20-5.40); Red Cell Distribution Width 12.8 % (11.5-17.5); White Blood Count 5.7 K/mm3 (4.8-10.8)
[2021-02-15 07:23] LABS: Alanine Aminotransferase 20 U/L (12-78); Albumin Level 4.2 g/dl (3.5-5.0); Alkaline Phosphatase 53 U/L (38-126); Aspartate Amino Transferase 26 U/L (14-36); Bilirubin,Direct 0.1 mg/dl (0.0-0.4); Bilirubin,Indirect 0.6 mg/dL (0.0-0.9); Bilirubin,Total 0.7 mg/dl (0.2-1.3); Bilirubin,Unconjugated 0.6 mg/dL (0.0-1.1); Total Protein,Serum 6.9 g/dl (6.3-8.2)
[2021-02-15 07:24] LABS: Anion Gap 9.8 mEq/L (5-15); Blood Urea Nitrogen 16 mg/dl (7-17); Calcium 9.1 mg/dl (8.4-10.2); Carbon Dioxide 31 mmol/L (22.0-30.0); Chloride 103 mmol/L (98-107); Creatinine Clearance Estimated 155 mL/min (50-200); Estimated Glomerular Filt Rate 77 ml/min (>60); GFR (African American) 93 ML/MIN (>60); Glucose 112 mg/dl (74-100); Potassium 3.8 mmoL/L (3.5-5.1); Sodium 140 mmol/L (136-145)
[2021-02-15 07:30] VITALS: BP 110/73; PULSE 58; RESP 15; O2SAT 97
[2021-02-15 07:39] LABS: Troponin I < 0.01 ng/ml (0.00-0.034)
[2021-02-15 07:42] LABS: T4 (Thyroxine) 8.9 ug/dl (5.53-11.0)
[2021-02-15 07:55] LABS: Thyroid Stimulating Hormone 8.18 uIU/mL (0.465-4.68)
[2021-02-15 08:00] VITALS: BP 124/72; PULSE 59; RESP 17; O2SAT 98
[2021-02-15 08:36] VITALS: BP 124/72; PULSE 55; RESP 18; TEMP 36.8; O2SAT 100
== END 2021-02-15 08:36 | disposition home or self-care (01) ==
PROVIDERS: Emergency Provider Student in an Organized Health Care Education/Training Program; PCP Family Medicine
DX: R07.9 Chest pain, unspecified (principal); I10 Essential (primary) hypertension; E03.9 Hypothyroidism, unspecified; K21.9 Gastro-esophageal reflux disease without esophagitis; E78.5 Hyperlipidemia, unspecified; Z79.899 Other long term (current) drug therapy
CPT/HCPCS: 71046; 80048; 80076; 84436; 84443; 84484; 85025; 93005; 99283

== ENCOUNTER → 2021-04-26 07:20 | Outpatient (CLI) | payer BC, SELFPAY ==
--- NOTE | 2021-04-26 | CA_ITS ---
APPROVED REPORT Exam: Exercise Treadmill Technologist: Tangela Villafuerte Ht: 5 ft 6 in Wt: 263 lbs BSA: 2.25 m2 HR: 57 bpm BP: 117/70 mmHg Indications: Chest pain Medical History Medications: Levothyroxine,,,,, Atenolol,,,,, Pantoprazole,,,,, Sucralfate,,,,, FluTICASONE,,,,, Furosemide,,,,, AmiTRIPTYLline,,,,, Stress Test Details Test: Chaz HR Resting HR: 50 bpm Max Heart Rate (APMHR): 174 bpm Max HR Achieved: 156 bpm Target HR (85% APMHR): 147 bpm % of APMHR: 89 Recovery HR: 87 bpm BP Resting BP: 117.0/70.0 mmHg Max BP: 140.0/86.0 mmHg Recovery BP: 116.0/65.0 mmHg ECG Clinical Exercise duration: 07:12 min Highest Stage Achieved: Exercise capacity: 10.1 METs Stress ECG Conclusion Symptoms: Chest tightness noted with exercise - Left shoulder pain and shortness of air. Arrhythmias/Ectopy: PVCs noted ST-T Changes: Limited ST segment depression noted from the baseline EKG. Conclusion: The EKG portion of the exercise Myoview is positive for ischemia. Test Summary REST . . . . . . . Sitting REST . . . . . . . Standing REST 09:19 0.0 0.0 50 . 117/ 70 . . Stage 1 01:00 10.0 1.7 95 . . . . Stage 1 02:00 10.0 1.7 107 . . . . Stage 1 03:00 10.0 1.7 113 . 122/ 82 . . Stage 2 . . . . . . . chest tightness Stage 2 01:00 12.0 2.5 126 . . . . Stage 2 02:00 12.0 2.5 134 . . . . Stage 2 03:00 12.0 2.5 136 . 126/ 82 . . Stage 3 . . . . . . . Myoview Injected Stage 3 01:00 14.0 3.4 155 . . . . Stage 3 01:12 14.0 3.4 155 . . . Stop exercise at 07:12 RECOVERY 01:00 0.0 0.0 130 . 140/ 86 . . RECOVERY 02:00 0.0 0.0 108 . 140/ 86 . . RECOVERY 03:00 0.0 0.0 94 . 140/ 86 . . RECOVERY 04:00 0.0 0.0 95 . 124/ 75 . . RECOVERY 05:00 0.0 0.0 87 . 116/ 65 . . RECOVERY 05:07 0.0 0.0 91 . 116/ 65 . . Electronically signed by : Wai Mensah MD 04/26/2021 19:04:47
--- NOTE | 2021-04-26 07:20 | NM_ITS ---
APPROVED REPORT Exam: Nuclear Stress Test Indication: Chest pain, SOB, Obesity, HTN, CHF, High cholesterol, Family history Patient Location: Outpatient Stress Tech: Tangela Villafuerte SC Tech:Jaci Qureshi, ARRT, RT (R)(N) Ht: 5 ft 6 in Wt: 260 lbs Bra Size: 40D HR: 57 bpm BP: 117/70 mmHg BSA: 2.24 m2 BMI: 41.9 History: Chest pain, SOB, Obesity, HTN, CHF, High cholesterol, Family history Procedure: Patient exercised on Chaz protocol 7:12 minutes and sec, resting heart rate 57 bpm, resting blood pressure 117/70 mmHg, with exercise maximum heart rate achived was 155 bpm which is 90 % of the maximum predicted heart rate and blood pressure was 126/82 mmHg. Test was stopped due to SOA. Patient denied any complaint of chest pain. Patient has good exercise capacity, achieved 10.1 METs of workload on treadmill, the blood pressure response to exercise was Adequate. Electrocardiogram Resting electrocardiogram shows sinus rhythm, with exercise there is [address] segment depression noted from the baseline EKG. EKG portion of the exercise Myoview is positive for ischemia. Cardiac Stress and Resting SPECT Images: Cardiac Stress and Resting SPECT images were obtained using technetium 99m Myoview 32.4 mCi stress and 10.51 mCi at rest. Gated SPECT for analysis of segmental wall motion and calculation of the ejection fraction also done. Cardiac stress and resting SPECT images show reversible ischemia involving the anterior wall, computer derived ejection fraction is 57% with no regional wall motion abnormality, right ventricle is normal size and contractility. Conclusion: 1. The EKG portion of the exercise Myoview is positive for ischemia, patient has good exercise capacity achieved 10.1 METs of workload on treadmill, the blood pressure response to exercise was adequate, test was stopped due to shortness of breath patient also complained of chest discomfort. 2. Scintigraphic evidence of reversible ischemia involving the anterior wall, compared right ejection fraction is 57% with no regional wall motion abnormality, right ventricle is normal size and contractility. 3. Abnormal exercise Myoview study. Electronically signed by : Wai Mensah MD 04/26/2021 19:08:30
--- NOTE | 2021-04-26 08:13 | CA_ITS ---
APPROVED REPORT EXAM: Comprehensive 2D, Doppler, and color-flow Echocardiogram Director Of Outpatient Services: Lola Steiner, RCS, RVS Ht: 5 ft 6 in Wt: 263lbs BSA: 2.25 BP: 128/74 mmHg Indications: cp, Hx-covid 2020, SOA, Palpitations, HTN, HLD 2D Dimensions Aortic Root 2.83 cm LA Volume 75.70 mL Left Atrium 4.05 cm LA Volume Index 33.60 mL/m2 (M/F) 16-34 LVOT 1.90 cm (M/F) 1.5-2.5 M-Mode Dimensions RVDd 2.59 cm (0.9-2.6) LA Diam 4.35 cm (1.9-4.0) LVDd 5.30 cm (3.5-5.7) Ao Diam 2.97 cm (2.0-3.7) LVDs 3.20 cm (3.5-5.7) IVSd 1.18 cm (0.6-1.1) PWd 1.03 cm (0.6-1.1) EF (Teich) 69.70% EPSs 0.19 cm FS 39.60% EDV (Teich) 135.30 mL TAPSE 2.02 (<1.7) ESV (Teich) 41.00 mL LV Diastology E Decel Time 193.00 (160-240 msec) E/A Ratio 1.51 MED E' 10.50 (< 7 cm/sec) MED A' 9.80 cm/s E'/MED E' Ratio 8.70 (>14) LAT E' 10.40 (<10 cm/sec) LAT A' 6.50 cm/s E/LAT E' Ratio 8.78 (>14) Aortic Valve LVOT Max 129.00 (70-110 cm/s) LVOT VTI 27.27 cm AoV Peak Evaristo. 156.00 (50-130 cm/s) AO Peak GR. 9.80 mmHg AO Mean GR. 5.00 (<5 mmHg) AO VTI 34.27 (18-25 cm) SIMIN (VTI) 2.26 (2.5-4.5 cm2) Mitral Valve MV A Velocity 60.00 (40-130 cm/s) E/A Ratio 1.51 MV Decel. Time 193.00 (160-240 ms) MV Mean Gr. 1.30 (<2mmHg) MV PHT 57.00 ms Pulmonary Valve PV Peak Velocity 106.00 (50-150 cm/s) Tricuspid Valve TR P. Velocity 225.00 cm/s RAP Estimate 10.00 mmHg RVSP 30.30 mmHg Left Ventricle Left atrium is mildly enlarged, left ventricle is normal size, there is no concentric left ventricular hypertrophy, visually estimated ejection fraction 55% with no regional wall motion abnormality, diastolic parameters are within normal range. Right Ventricle Right atrium and right ventricle are normal size and contractility. Aortic Valve Aortic valve is minimally thickened and fibrosed, there is no aortic stenosis or aortic insufficiency. Mitral Valve Mitral valve grossly normal, there is trace mitral regurgitation. Tricuspid Valve Tricuspid grossly normal, there is trace tricuspid regurgitation, calculated right ventricular systolic pressure is 30 mmHg. Pulmonic Valve Pulmonic valve is poorly visualized. Great Vessels Aortic root is normal size. Inferior vena cava normal size normal inspiratory collapse. Pericardium No significant pericardial effusion noted. Conclusion 1. Mildly enlarged left atrium, normal left ventricular size, visually estimated ejection fraction 55% with no regional wall motion abnormality, diastolic parameters are within normal range. 2. Trace mitral and tricuspid regurgitation, calculated right ventricular systolic pressure 30 mmHg. 3. No significant pericardial effusion. 4. Inferior vena cava is normal size with normal spectral collapse. Electronically signed by : Wai Mensah MD 04/26/2021 19:49:14
--- NOTE | 2021-04-26 09:02 | HMH.ITSHM ---
Current Home Medications as stated by this patient Jessie Nicole or applications sales representative. []SURALFATE PANTOPRAZOLE FUROSEMIDE ATENOLOL AMTRIPTYLINE LEVOTHYROXINE FLUTICASONE
== END ==
PROVIDERS: PCP Family Medicine; Visit Provider Urology
DX: R07.9 Chest pain, unspecified (principal); I11.9 Hypertensive heart disease without heart failure; E78.2 Mixed hyperlipidemia; Z86.79 Personal history of other diseases of the circulatory system
CPT/HCPCS: 78452; 93017; 93306; A9502

== ENCOUNTER → 2021-04-29 09:16 | Outpatient (CLI) | payer BC, SELFPAY ==
[2021-04-29 09:34] LABS: Coronavirus 19, PCR Not Detected (NotDetected); Influenza A, PCR Not Detected (NotDetected); Influenza B, PCR Not Detected (NotDetected)
[2021-04-29 10:02] LABS: Basophils # 0.1 K/mm3 (0-0.2); Basophils % 1.2 % (0.1-2.0); Eosinophils # 0.1 K/mm3 (0.0-0.4); Eosinophils % 1.5 % (0.1-12.0); Hematocrit 40.4 % (37.0-47.0); Hemoglobin 12.9 g/dL (12.2-16.2); Lymphocytes # 1.7 K/mm3 (0.7-4.5); Lymphocytes % 35.5 % (10-50); Mean Corpuscular HGB Conc 31.9 g/dL (31.8-35.4); Mean Corpuscular Hemoglobin 31.9 pg (27.0-31.2); Mean Corpuscular Volume 100.2 fl (81-99); Mean Platelet Volume 7.8 fl (7.4-10.4); Monocytes # 0.3 K/mm3 (0.1-1.0); Monocytes % 6.1 % (1.7-9.3); Neutrophils # 2.7 K/mm3 (1.8-7.8); Neutrophils % 55.7 % (37.0-80.0); Platelet Count 377 K/mm3 (142-424); Red Blood Count 4.03 M/mm3 (4.20-5.40); Red Cell Distribution Width 13.7 % (11.5-17.5); White Blood Count 4.9 K/mm3 (4.8-10.8)
[2021-04-29 10:29] LABS: Anion Gap 10.6 mEq/L (5-15); Blood Urea Nitrogen 16 mg/dl (7-17); Carbon Dioxide 29 mmol/L (22.0-30.0); Chloride 105 mmol/L (98-107); Estimated Glomerular Filt Rate 90 ml/min (>60); GFR (African American) 109 ML/MIN (>60); Glucose 103 mg/dl (74-100); Potassium 4.6 mmoL/L (3.5-5.1); Sodium 140 mmol/L (136-145)
== END ==
PROVIDERS: Visit Provider Physician Assistant
DX: Z01.812 Encounter for preprocedural laboratory examination (principal); Z11.52 Encounter for screening for COVID-19; I20.8 Other forms of angina pectoris; I63.9 Cerebral infarction, unspecified; I11.9 Hypertensive heart disease without heart failure; I27.20 Pulmonary hypertension, unspecified; R00.1 Bradycardia, unspecified; E78.2 Mixed hyperlipidemia; E66.01 Morbid (severe) obesity due to excess calories; R94.31 Abnormal electrocardiogram [ECG] [EKG]; R94.39 Abnormal result of other cardiovascular function study
CPT/HCPCS: 80048; 85025; C9803; U0003; U0005

== ENCOUNTER 2021-04-30 09:51 | Day surgery (SDC) | payer BC, SELFPAY ==
[2021-04-30] VITALS (18 sets, daily range): BP systolic 105–128; BP diastolic 58–71; PULSE 57–84; RESP 16–18; O2SAT 92–100; BMI 43.2
--- NOTE | 2021-04-30 07:07 | IR_ITS ---
APPROVED REPORT Patient Location: Outpatient Professor Of Apologetics: JOHN PAUL Menjivar RT (R) PROCEDURES Left heart catheterization Left ventriculogram Selective coronary angiogram INDICATION Abnormal Myoview Informed consent was obtained prior to the procedure. COMPLICATIONS None Estimated Blood Loss: Less than 10 mls TECHNIQUE One percent lidocaine used to anesthetize the right anterior aspect of the wrist. The right radial artery was accessed via the Seldinger technique. A 6 [place] sheath was placed in the right radial artery. 2.5 mg of verapamil, 800 mcg of nitroglycerin, 1mg Lidocaine and 5000 U Heparin were given through the arterial sheath. The papa catheter was also used to perform left heart catheterization, left ventriculogram and selective coronary angiogram. At the end of the procedure the sheath was removed good hemostasis was achieved using Traclet band, patient was transferred to the postop holding area in stable condition. ANGIOGRAPHIC RESULTS The left main artery Normal The left anterior descending artery Normal The circumflex artery Normal The right coronary artery Dominant normal The PRIEST ventriculogram reveals Normal 65% The left ventricular end-diastolic pressure 25 to 30 mmHg IMPRESSION Normal coronary arteries Normal ejection fraction Elevated LVEDP consistent with diastolic dysfunction PLAN 1. Treatment of diastolic dysfunction which is the etiology for patient's angina Electronically signed by : Wagner Dias MD 04/30/2021 12:31:52
[2021-04-30 10:45] LABS: HCG Qualitative, Serum Negative (Negative)
== END 2021-04-30 15:41 | disposition home or self-care (01) ==
LOC: CATHLAB 09:52
PROVIDERS: Visit Provider Internal Medicine
DX: I11.9 Hypertensive heart disease without heart failure (principal); E66.01 Morbid (severe) obesity due to excess calories; Z68.41 Body mass index [BMI] 40.0-44.9, adult; E78.2 Mixed hyperlipidemia; G47.33 Obstructive sleep apnea (adult) (pediatric); I20.8 Other forms of angina pectoris; R07.9 Chest pain, unspecified; R94.31 Abnormal electrocardiogram [ECG] [EKG]; R94.39 Abnormal result of other cardiovascular function study; R00.1 Bradycardia, unspecified; I27.20 Pulmonary hypertension, unspecified; Z82.49 Family history of ischemic heart disease and other diseases of the circulatory system
CPT/HCPCS: 84703; 93458; 99152; C1725; C1769; J1644; Q9967

== ENCOUNTER → 2021-05-26 10:24 | Outpatient (CLI) | payer BC, SELFPAY ==
[2021-05-26 11:07] LABS: Chloride 106 mmol/L (98-107); Sodium 137 mmol/L (136-145)
[2021-05-26 11:10] LABS: Blood Urea Nitrogen 16 mg/dl (7-17); Calcium 8.4 mg/dl (8.4-10.2); Carbon Dioxide 26 mmol/L (22.0-30.0); Estimated Glomerular Filt Rate 90 ml/min (>60); GFR (African American) 109 ML/MIN (>60); Glucose 91 mg/dl (74-100)
== END ==
PROVIDERS: Visit Provider Physician Assistant
DX: I20.8 Other forms of angina pectoris (principal); R00.1 Bradycardia, unspecified; I27.20 Pulmonary hypertension, unspecified; I11.9 Hypertensive heart disease without heart failure; E78.5 Hyperlipidemia, unspecified; E66.01 Morbid (severe) obesity due to excess calories; G47.33 Obstructive sleep apnea (adult) (pediatric); R94.31 Abnormal electrocardiogram [ECG] [EKG]; Z68.41 Body mass index [BMI] 40.0-44.9, adult
CPT/HCPCS: 36415; 80048

== ENCOUNTER → 2021-06-04 08:37 | Outpatient (CLI) | payer BC, SELFPAY | LOC: SL 08:38 | PROVIDERS: PCP Family Medicine; Visit Provider Internal Medicine | DX: G47.33 Obstructive sleep apnea (adult) (pediatric) (principal); R06.00 Dyspnea, unspecified; R07.9 Chest pain, unspecified; R06.83 Snoring; I11.9 Hypertensive heart disease without heart failure; E78.2 Mixed hyperlipidemia; I27.20 Pulmonary hypertension, unspecified; R00.1 Bradycardia, unspecified; R94.31 Abnormal electrocardiogram [ECG] [EKG]; E66.01 Morbid (severe) obesity due to excess calories; Z68.41 Body mass index [BMI] 40.0-44.9, adult | CPT/HCPCS: G0399 ==

== ENCOUNTER 2021-06-16 06:42 | Emergency (ER) | payer BC, SELFPAY ==
[2021-06-16 06:42] VITALS: BP 109/60; PULSE 75; RESP 16; TEMP 37.1; O2SAT 95; BMI 41.9
--- NOTE | 2021-06-16 06:49 | ECG_ITS ---
APPROVED REPORT Exam: Resting ECG HR:67 bpm ECG Measurements Heart Rate 67 AXES UT 152 P 33 QRSd 88 QRS 41 QT 374 T 38 QTc 390 Conclusion SINUS RHYTHM POSSIBLE LEFT ATRIAL ENLARGEMENT [-0.1mV P-WAVE IN V1/V2] POSSIBLE ANTERIOR MYOCARDIAL INFARCTION , PROBABLY OLD [30 ms Q WAVE IN V3/V4, OR R < 0.2 mV IN V4] BORDERLINE ECG UNCONFIRMED REPORT Electronically signed by : Jonnathan Mosley MD 06/16/2021 17:55:52
[2021-06-16 07:00] VITALS: BP 102/73; PULSE 77; O2SAT 97
--- NOTE | 2021-06-16 07:01 | XR_ITS ---
FINAL REPORT CLINICAL HISTORY: cough, soa COMPARISON: February 15, 2021 FINDINGS: Two views of the chest were obtained. The heart size and pulmonary vascularity are within normal limits. The mediastinum is normal. No acute pulmonary abnormality is identified. There is no pneumothorax. The bony thorax is intact. IMPRESSION: No active cardiopulmonary disease. Reviewed, Interpreted and Dictated by Jermaine Houser III, MD Transcribed by Rigo Souza Authenticated by Jermaine Houser III, MD on 06/16/2021 07:37:43 AM [facility]
[2021-06-16 07:18] LABS: Basophils # 0.1 K/mm3 (0-0.2); Basophils % 1.3 % (0.1-2.0); Eosinophils % 0.8 % (0.1-12.0); Hematocrit 41.7 % (37.0-47.0); Hemoglobin 13.9 g/dL (12.2-16.2); Lymphocytes # 1.6 K/mm3 (0.7-4.5); Mean Corpuscular HGB Conc 33.4 g/dL (31.8-35.4); Mean Corpuscular Hemoglobin 32.3 pg (27.0-31.2); Mean Corpuscular Volume 96.9 fl (81-99); Mean Platelet Volume 7.7 fl (7.4-10.4); Monocytes # 0.6 K/mm3 (0.1-1.0); Monocytes % 10.5 % (1.7-9.3); Neutrophils % 56.4 % (37.0-80.0); Platelet Count 244 K/mm3 (142-424); Red Blood Count 4.31 M/mm3 (4.20-5.40); Red Cell Distribution Width 13.8 % (11.5-17.5); White Blood Count 5.2 K/mm3 (4.8-10.8)
[2021-06-16 07:22] LABS: Alanine Aminotransferase 20 U/L (12-78); Albumin Level 4.4 g/dl (3.5-5.0); Albumin/Globulin Ratio 1.6 (1.1-1.8); Anion Gap 12.6 mEq/L (5-15); Aspartate Amino Transferase 27 U/L (14-36); Bilirubin,Total 0.7 mg/dl (0.2-1.3); Blood Urea Nitrogen 14 mg/dl (7-17); Carbon Dioxide 27 mmol/L (22.0-30.0); Chloride 103 mmol/L (98-107); Creatinine Clearance Estimated 82 mL/min (50-200); Estimated Glomerular Filt Rate 77 ml/min (>60); GFR (African American) 93 ML/MIN (>60); Globulin 2.7 g/dL (1.3-3.2); Glucose 132 mg/dl (74-100); Potassium 3.6 mmoL/L (3.5-5.1); Sodium 139 mmol/L (136-145); Total Protein,Serum 7.1 g/dl (6.3-8.2)
--- NOTE | 2021-06-16 07:23 | PC.NURSE ---
Rapid covid/flu swab sent to lab at this time
[2021-06-16 07:25] LABS: Influenza A, PCR Not Detected (NotDetected); Influenza B, PCR Not Detected (NotDetected)
[2021-06-16 07:26] LABS: VBG Base Excess 1.7 mmol/L (-2.4-2.3); VBG HCO3 25.7 mmol/L (23-30); VBG Oxygen Saturation 99.2 % (50-70); VBG PCO2 37.5 mmol/L (35-51); VBG PH 7.45 mmol/L (7.31-7.41); VBG PO2 161.1 mmol/L (28-40); VBG Total CO2 26.8 mmol/L (23-27)
[2021-06-16 07:30] VITALS: BP 110/77; PULSE 64; O2SAT 93
--- NOTE | 2021-06-16 07:32 | HMH.EDGENADL ---
ED Disposition Clinical Impression: COVID-19 Disposition: Home, Self-Care Condition on Discharge: Fair Instructions: DI for COVID-19 (Suspected or Confirmed ) Additional Instructions: You have been evaluated for cough and shortness of breath. Diagnosed with COVID-19. Use albuterol inhaler as needed. Take steroids. Take Paxil livid, antiviral medication for COVID infection. Follow-up with your primary care doctor in 1 to 2 days. Return to the emergency department at once for any new or worsening symptoms, difficulty breathing, chest pain, other concerns. Prescriptions: Albuterol Sulfate [Albuterol Sulfate Hfa] 8.5 gm IH Q6 #1 each Transmission Status: Pending to [facility] # dexAMETHasone [Dexamethasone] 6 mg PO DAILY #5 tab Transmission Status: Pending to [facility] # Nirmatrelvir/Ritonavir [Paxlovid Co-Pack (Eua)] 1 each PO ONCE #1 tab Transmission Status: Pending to [facility] # Azithromycin [Z-Steve 250mg Tab] 250 mg PO DAILY #6 tab Transmission Status: Pending to [facility] # Referrals: Nicole Adams [Primary Care Provider] - Time of Disposition: 09:13 - Critical Care Critical Care Time: No Attestation: On 06/16/21, the high probability of a clinically significant, sudden or life threatening deterioration of the following system(s) required my full and direct attention, intervention and personal management. The time I documented below is in addition to time spent performing reported procedures but includes the following listed in this critical care notation. Medical Decision Making - Medical Records Medical records reviewed: Yes: I reviewed the patient's medical records. - Dru Inquiry Pt receiving controlled substance: No Vital Signs: 06/16/21 06:42 06/16/21 07:00 06/16/21 07:30 Temperature 98.7 F Temperature Source Oral Pulse Rate 77 64 Pulse Rate [Right Radial] 75 Respiratory Rate 16 Blood Pressure 102/73 L 110/77 Blood Pressure [Right Arm] 109/60 L Blood Pressure Mean Blood Pressure Mean [Right Arm] 76 Blood Pressure Source [Right Arm] Automatic Cuff Blood Pressure Position [Right Arm] Sitting 02 Sat by Pulse Oximetry 95 97 93 L Oxygen Delivery Method Room Air 06/16/21 08:01 06/16/21 08:30 Temperature Temperature Source Pulse Rate 62 Pulse Rate [Right Radial] Respiratory Rate Blood Pressure 110/71 109/79 L Blood Pressure [Right Arm] Blood Pressure Mean 79 Blood Pressure Mean [Right Arm] Blood Pressure Source [Right Arm] Blood Pressure Position [Right Arm] 02 Sat by Pulse Oximetry 95 Oxygen Delivery Method - Lab Data Lab Results 06/16/21 06:54: WBC 5.2, RBC 4.31, Hgb 13.9, Hct 41.7, MCV 96.9, MCH 32.3 H, MCHC 33.4, RDW 13.8, Plt Count 244, MPV 7.7, Neut % (Auto) 56.4, Lymph % (Auto) 31.0, [place] % (Auto) 10.5 H, Eos % (Auto) 0.8, Baso % (Auto) 1.3, Neut # (Auto) 3.0, Lymph # (Auto) 1.6, [place] # (Auto) 0.6, Eos # (Auto) 0.0, Baso # (Auto) 0.1 06/16/21 06:54: Sodium 139, Potassium 3.6, Chloride 103, Carbon Dioxide 27, Anion Gap 12.6, BUN 14, Creatinine 0.80, Estimated Creat Clear 82, Estimated GFR 77, Est GFR ( Amer) 93, Glucose 132 H, Calcium 9.0, Total Bilirubin 0.7, AST 27, ALT 20, Alkaline Phosphatase 67, Troponin I < 0.01, NT-Pro-B Natriuret Pep 104, Total Protein 7.1, Albumin 4.4, Globulin 2.7, Albumin/Globulin Ratio 1.6 06/16/21 07:01: VBG pH 7.45 H, VBG pCO2 37.5, VBG pO2 161.1 H, VBG HCO3 25.7, VBG Total CO2 26.8, VBG O2 Saturation 99.2 H, VBG Base Excess 1.7 06/16/21 07:20: SARS-CoV-2 (PCR) Detected A, Influenza A Untype (PCR) Not detected, Influenza Type B (PCR) Not detected Result diagrams: 06/16/21 06:54 06/16/21 06:54 Orders (Tests/Meds): ORDERS Category Date Time Status Troponin I Q3H Lab 06/16/21 10:15 Ordered Troponin I Q3H Lab 06/16/21 13:15 Ordered - ECG Data Tracing #1 Sinus rhythm with ventricular rate of 67 beat
[2021-06-16 07:47] LABS: Coronavirus 19, PCR Detected (NotDetected)
[2021-06-16 08:01] VITALS: BP 110/71
[2021-06-16 08:14] LABS: Alkaline Phosphatase 67 U/L (38-126)
[2021-06-16 08:28] LABS: NT Pro Brain Natriuretic Pep. 104 pg/mL (0-125); Troponin I < 0.01 ng/ml (0.00-0.034)
[2021-06-16 08:30] VITALS: BP 109/79; PULSE 62; O2SAT 95
[2021-06-16 09:55] VITALS: BP 118/83; PULSE 63; RESP 20; TEMP 37.1; O2SAT 97
== END 2021-06-16 09:55 | disposition home or self-care (01) ==
PROVIDERS: Emergency Provider Emergency Medicine; PCP Family Medicine
DX: U07.1 COVID-19 (principal); Z79.899 Other long term (current) drug therapy; Z88.7 Allergy status to serum and vaccine; Z88.8 Allergy status to other drugs, medicaments and biological substances; Z91.041 Radiographic dye allergy status; E78.5 Hyperlipidemia, unspecified; I10 Essential (primary) hypertension; K21.9 Gastro-esophageal reflux disease without esophagitis; E03.9 Hypothyroidism, unspecified; Z86.79 Personal history of other diseases of the circulatory system
CPT/HCPCS: 71046; 80053; 82803; 83880; 84484; 85025; 93005; 99283; C9803; U0003; U0005

== ENCOUNTER → 2022-02-21 07:49 | Outpatient (CLI) | payer BC, SELFPAY ==
[2022-02-21 08:40] VITALS: PULSE 60; PULSE 65
== END ==
LOC: RT 07:50
PROVIDERS: PCP Family Medicine; Visit Provider Internal Medicine Pulmonary Disease
DX: R06.09 Other forms of dyspnea (principal)
CPT/HCPCS: 94060; 94618; 94640; 94727; 94729

== ENCOUNTER → 2022-05-16 15:15 | Outpatient (CLI) | payer BC, SELFPAY ==
--- NOTE | 2022-05-16 15:15 | CT_ITS ---
FINAL REPORT TECHNIQUE: Axial CT images were performed through the chest without contrast. Coronal reformatted images were submitted. This study was performed with techniques to keep radiation doses as low as reasonably achievable (ALARA). Individualized dose reduction techniques using automated exposure control or adjustment of mA and/or kV according to the patient's size were employed. CLINICAL HISTORY: Nodule FINDINGS: The left lobe of the thyroid is not identified and may be surgically absent. There is no axillary adenopathy. There is no hilar or mediastinal adenopathy. The heart size is normal. There is no pericardial or pleural effusion. A gastric sleeve is seen in the limited images of the upper abdomen. No suspicious infiltrate or nodule identified. There are moderate changes of centrilobular emphysema in both upper lobes. There is a calcified granuloma in the medial left lung base and in the periphery of the right lung base. IMPRESSION: Calcified residual old granulomatous disease. Gastric sleeve. Reviewed, Interpreted and Dictated by David Barajas MD Transcribed by Cary Kimble Authenticated and [facility]
== END ==
PROVIDERS: PCP Family Medicine; Visit Provider Internal Medicine Pulmonary Disease
DX: R91.8 Other nonspecific abnormal finding of lung field (principal)
CPT/HCPCS: 71250

== ENCOUNTER → 2022-07-23 09:01 | Outpatient (CLI) | payer BC, SELFPAY ==
[2022-07-23 09:26] LABS: Basophils % 0.4 % (0.1-2.0); Eosinophils # 0.1 K/mm3 (0.0-0.4); Eosinophils % 2.2 % (0.1-12.0); Hematocrit 40.6 % (37.0-47.0); Hemoglobin 13.1 g/dL (12.2-16.2); Lymphocytes # 2.3 K/mm3 (0.7-4.5); Lymphocytes % 36.1 % (10-50); Mean Corpuscular HGB Conc 32.2 g/dL (31.8-35.4); Mean Corpuscular Hemoglobin 30.6 pg (27.0-31.2); Mean Corpuscular Volume 95.2 fl (81-99); Mean Platelet Volume 7.4 fl (7.4-10.4); Monocytes # 0.4 K/mm3 (0.1-1.0); Neutrophils # 3.5 K/mm3 (1.8-7.8); Neutrophils % 55.2 % (37.0-80.0); Platelet Count 338 K/mm3 (142-424); Red Blood Count 4.26 M/mm3 (4.20-5.40); Red Cell Distribution Width 13.8 % (11.5-17.5); White Blood Count 6.3 K/mm3 (4.8-10.8)
[2022-07-23 10:28] LABS: Chloride 104 mmol/L (98-107); Potassium 4.5 mmoL/L (3.5-5.1); Sodium 137 mmol/L (136-145)
[2022-07-23 10:30] LABS: Alanine Aminotransferase 19 U/L (12-78); Aspartate Amino Transferase 29 U/L (14-36); Blood Urea Nitrogen 17 mg/dl (7-17); Estimated Glomerular Filt Rate 90 ml/min (>60); GFR (African American) 109 ML/MIN (>60)
[2022-07-23 10:31] LABS: Albumin Level 4.2 g/dl (3.5-5.0); Albumin/Globulin Ratio 1.7 (1.1-1.8); Alkaline Phosphatase 60 U/L (38-126); Anion Gap 14.5 mEq/L (5-15); Bilirubin,Total 0.8 mg/dl (0.2-1.3); Calcium 8.6 mg/dl (8.4-10.2); Carbon Dioxide 23 mmol/L (22.0-30.0); Chol/HDL Ratio 3.6 (1-3.5); Cholesterol 232 mg/dl (140-200); Globulin 2.5 g/dL (1.3-3.2); Glucose 101 mg/dl (74-100); HDL Cholesterol 65 mg/dl (40-60); Total Protein,Serum 6.7 g/dl (6.3-8.2); Triglycerides 136 mg/dl (30-150); VLDL Cholesterol 27 mg/dL (0-40)
[2022-07-23 10:42] LABS: Direct LDL Cholesterol 123.04 mg/dL (100-129)
[2022-07-23 10:48] LABS: Triiodothryronine (T3) Uptake 34 % (23.5-40.5)
[2022-07-23 11:02] LABS: Thyroid Stimulating Hormone 3.61 uIU/mL (0.465-4.68)
[2022-07-24 08:15] LABS: FSH 62.8 mIU/mL (.); LH 53.4 mIU/mL (.)
[2022-07-24 09:13] LABS: Free Thyroxine Index 2.9 ug/dL (5.93-13.13); T4 (Thyroxine) 8.6 ug/dl (5.53-11.0)
== END ==
PROVIDERS: PCP Family Medicine; Visit Provider Nurse Practitioner Obstetrics & Gynecology
DX: E34.9 Endocrine disorder, unspecified (principal); I10 Essential (primary) hypertension; Z79.899 Other long term (current) drug therapy
CPT/HCPCS: 80053; 80061; 83001; 83002; 84436; 84443; 84479; 85025

== ENCOUNTER → 2022-08-01 12:46 | Outpatient (CLI) | payer BC, SELFPAY ==
--- NOTE | 2022-08-01 12:48 | US_ITS ---
PROCEDURE: US TRANSVAGINAL CLINICAL INDICATION: lower left quadrant abdominal pain COMPARISON: No exams were available for comparison FINDINGS: UTERUS: 8cm x 5cmx 3cm with a combined endometrial thickness of 4.7mm. Anteverted Multiple small nabothian cysts within the cervix Heterogeneous anterior myometrium possibly consistent with adenomyosis. Anterior myometrial echogenic focus LEFT OVARY: [id number] with a volume of 1.9ml. RIGHT OVARY: 3cmx [id number] with a volume of 2.7ml. Both ovaries are seen and appear normal. Doppler flow to both ovaries are seen. There is no fluid in the cul-de-sac. IMPRESSION: 1. Anteverted uterus normal in shape and size. Thin endometrium. 2. Heterogenous anterior myometrium possibly consistent with adenomyosis. 3. Small echogenic focus in the anterior myometrium. 4. Atrophic ovaries. 5. No obvious cause for her left lower quadrant pain. Dictated by: Jhonny Romo MD 08/01/2022 17:42 Jhonny Romo MD in [place] 08/01/2022 17:42
== END ==
LOC: RAD 12:46
PROVIDERS: PCP Family Medicine; Visit Provider Nurse Practitioner Obstetrics & Gynecology
DX: R10.32 Left lower quadrant pain (principal)
CPT/HCPCS: 76830

== ENCOUNTER 2023-12-28 13:00 | Outpatient (RCR) | payer BC, SELFPAY | END 2023-12-28 23:59 | disposition home or self-care (01) | LOC: OT 13:00 | PROVIDERS: Visit Provider Internal Medicine Rheumatology | DX: M25.512 Pain in left shoulder (principal); G89.29 Other chronic pain | CPT/HCPCS: 97014; 97110; 97140; 97166; 97168; G0283 ==

== ENCOUNTER 2024-02-09 16:00 | Outpatient (RCR) | payer BC, SELFPAY | END 2024-02-09 23:59 | disposition home or self-care (01) | LOC: PT 16:00 | PROVIDERS: PCP Family Medicine; Visit Provider Internal Medicine Rheumatology | DX: M25.512 Pain in left shoulder (principal); M51.34 Other intervertebral disc degeneration, thoracic region | CPT/HCPCS: 97012; 97014; 97035; 97110; 97140; 97163; G0283 ==

== ENCOUNTER 2024-02-26 07:20 | Outpatient (CLI) | payer BC, SELFPAY ==
[2024-02-26 07:32] LABS: Basophils # 0.1 K/mm3 (0-0.2); Basophils % 0.7 % (0.1-2.0); Eosinophils # 0.1 K/mm3 (0.0-0.4); Eosinophils % 1.9 % (0.1-12.0); Hematocrit 39.4 % (37.0-47.0); Hemoglobin 13.4 g/dL (12.2-16.2); Lymphocytes # 3.2 K/mm3 (0.7-4.5); Lymphocytes % 45.5 % (10-50); Mean Corpuscular Volume 91.2 fl (81-99); Mean Platelet Volume 8.8 fl (7.4-10.4); Monocytes # 0.5 K/mm3 (0.1-1.0); Monocytes % 6.9 % (1.7-9.3); Neutrophils # 3.1 K/mm3 (1.8-7.8); Neutrophils % 44.9 % (37.0-80.0); Platelet Count 317 K/mm3 (142-424); Red Blood Count 4.32 M/mm3 (4.20-5.40); Red Cell Distribution Width 12.7 % (11.5-17.5); White Blood Count 6.9 K/mm3 (4.8-10.8)
[2024-02-26 08:20] LABS: Alanine Aminotransferase 18 U/L (12-78); Albumin Level 4.3 g/dl (3.5-5.0); Alkaline Phosphatase 77 U/L (38-126); Aspartate Amino Transferase 27 U/L (14-36); Bilirubin,Direct 0.1 mg/dl (0.0-0.4); Bilirubin,Indirect 0.5 mg/dL (0.0-0.9); Bilirubin,Total 0.6 mg/dl (0.2-1.3); Bilirubin,Unconjugated 0.5 mg/dL (0.0-1.1); Blood Urea Nitrogen 15 mg/dl (7-17); Calcium 9.4 mg/dl (8.4-10.2); Carbon Dioxide 26 mmol/L (22.0-30.0); Chloride 107 mmol/L (98-107); Chol/HDL Ratio 3.1 (1-3.5); Cholesterol 204 mg/dl (140-200); Estimated Glomerular Filt Rate 89 ml/min (>60); GFR (African American) 108 ML/MIN (>60); Glucose 84 mg/dl (74-100); HDL Cholesterol 66 mg/dl (40-60); Magnesium 2.1 mg/dl (1.6-2.3); Sodium 140 mmol/L (136-145); Total Protein,Serum 6.4 g/dl (6.3-8.2); Triglycerides 157 mg/dl (30-150); VLDL Cholesterol 31 mg/dL (0-40)
[2024-02-26 08:32] LABS: Direct LDL Cholesterol 113.08 mg/dL (100-129)
[2024-02-26 08:37] LABS: Free T4 (Free Thyroxine) 1.46 ng/dl (0.78-2.19)
== END 2024-02-26 23:59 | disposition home or self-care (01) ==
PROVIDERS: Visit Provider Physician Assistant
DX: I27.20 Pulmonary hypertension, unspecified (principal); R07.9 Chest pain, unspecified; E78.5 Hyperlipidemia, unspecified; R94.31 Abnormal electrocardiogram [ECG] [EKG]; E66.01 Morbid (severe) obesity due to excess calories; I11.9 Hypertensive heart disease without heart failure; I47.20 Ventricular tachycardia, unspecified
CPT/HCPCS: 36415; 80048; 80061; 80076; 83735; 83880; 84439; 84443; 85025

== ENCOUNTER 2024-04-16 13:54 | Emergency (ER) | payer BC, SELFPAY ==
[2024-04-16] VITALS (10 sets, daily range): BP systolic 96–142; BP diastolic 47–86; PULSE 55–89; RESP 14–20; TEMP 36.7; O2SAT 94–98; BMI 35.2
--- NOTE | 2024-04-16 13:56 | ECG_ITS ---
APPROVED REPORT Exam: Resting ECG HR:86 bpm ECG Measurements Heart Rate 86 AXES IA 152 P 59 QRSd 90 QRS 74 QT 344 T 48 QTc 388 Conclusion SINUS RHYTHM POSSIBLE LEFT ATRIAL ENLARGEMENT [-0.1mV P-WAVE IN V1/V2] Electronically signed by : SUMAN LATHAM, 04/16/2024 23:41:35
--- NOTE | 2024-04-16 14:06 | XR_ITS ---
FINAL REPORT CLINICAL HISTORY: Chest pain to the left neck and shoulder COMPARISON: 06/16/2021 FINDINGS: A single frontal view of the chest was obtained. No acute pulmonary opacity is present. There is no evidence of effusion or pneumothorax. Mediastinum is unremarkable. Heart size is normal. IMPRESSION: No acute abnormality. Reviewed, Interpreted and Dictated by Montserrat Elam MD Transcribed by Precious Ray Authenticated and [facility]
--- NOTE | 2024-04-16 14:24 | [facility].EDCP ---
Discharge Plan Disposition Patient Disposition: Home, Self-Care Condition: Good Prescriptions Prescriptions: No Action Wegovy 1 mg/0.5 mL pen injector 1 mg SQ WEEKLY methocarbamol 500 mg tablet 500 mg PO TID PRN (Reason: Pain (Scale Score 4-6)) levothyroxine 150 MCG tablet 150 mcg PO DAILY dicyclomine 10 mg capsule 10 mg PO Q8HP PRN (Reason: cramping) duloxetine 30 mg capsule,delayed release(DR/EC) 30 mg PO DAILY atenolol 25 mg tablet 25 mg PO DAILY Rx Instructions: TAKE 1 TABLET BY MOUTH DAILY FOR BLOOD PRESSURE Referrals Follow up/Referrals: Aaron Campos II, MD [Staff Physician] - See instructions Provider,MD Sandra [Primary Care Provider] - See instructions Steve Maria MD [Staff Physician] - See instructions Activity Restrictions/Add. Instructions Additional Instructions/Restrictions: You were evaluated in the emergency department today. At this time, your workup is reassuring against acute life-threatening pathology as a cause of your symptoms. It is very important that you follow-up very closely with primary care as well as with cardiology and gastroenterology to further help determine the cause of your chest pain. Return to the emergency department right away for new or worsening symptoms. Clinical Impressions Clinical Impression: Chest pain Stand Alone Forms Stand Alone Forms: Work/School Release Instructions Patient Instructions: DI for Atypical Chest Pain Print Language Print Language: Belarusian Discharge ED Provider: Carmen Payan HPI <Jose Alberto Lucas MD - Last Filed: 04/16/24 15:13> General Chief Complaint: Chest Pain Stated Complaint: Chest Pain Time Seen by Provider: 04/16/24 14:05 History of Present Illness HPI narrative: Please note that above description of symptoms, in this electronic medical record under categorization of recalled from ER triage doctor by RN are reflective of an initial nursing assessment, however, is not reflective of my full history and physical exam that was personally taken and clarified. Consequentially, this preceding description of symptoms, which may include the patient's categorized chief complaint in the EMR, do not reflect my personal clinical impression, and the ultimate description of history of present illness and patient stated complaints should be deferred to this section of the note. Unless stated otherwise or congruent with this section of the note, additional signs, symptoms, or incongruence should be interpreted as inaccurate with my clinical impression. Related Data Home Medications ?Medication ?Instructions ?Recorded ?Confirmed levothyroxine 150 mcg tablet 150 mcg PO DAILY thyroid 03/28/18 04/16/24 methocarbamol 500 mg tablet 500 mg PO TID PRN Pain (Scale 02/26/24 04/16/24 Score 4-6) semaglutide (weight loss) 1 mg/0.5 1 mg SQ WEEKLY 02/26/24 04/16/24 mL subcutaneous pen injector (Wegovy) atenolol 25 mg tablet 25 mg PO DAILY 04/16/24 04/16/24 dicyclomine 10 mg capsule 10 mg PO Q8HP PRN cramping 04/16/24 04/16/24 duloxetine 30 mg capsule,delayed 30 mg PO DAILY 04/16/24 04/16/24 release Allergies Allergy/AdvReac Type Severity Reaction Status Date / Time iodine Allergy Severe Redness of Verified 04/16/24 15:55 Skin Influenza Virus Vaccines Allergy Mild Unknown Verified 04/16/24 15:55 (INFLUENZA VIRUS VACCINES) allergy reaction Iodinated Contrast Media Allergy Unknown Redness of Verified 04/16/24 15:55 (Iodinated Contrast Media - Skin IV Dye) Iodamide Meglumine Allergy Unknown Unknown Uncoded 04/16/24 15:55 allergy reaction [facility] <Jose Alberto Lucas MD - Last Filed: 04/16/24 15:13> [facility] Disclaimer: The information contained in this section may have been updated after the patient was seen, as this information can be updated by other users. Medical History Lung nodule Mild pulmonary hypertension Pulmonary emphysema Dyspnea on exertion Smoking greater than 30 pack years Dyspnea Atypical angina Pulmonary HTN Surgical History History of tonsillectomy and adenoidectomy History of thyroidectomy History of gastric surgery History of craniotomy History of cholecystectomy Family History Other COPD (chronic obstructive pulmonary disease) Emphysema of lung Heart failure Lung cancer Social History Smoking Status: Former smoker smoking status stop date: 2013 alcohol intake: current alcohol intake frequency: holidays/special occasions only substance use type: denies use current occupational status: employed Travel in the last 8 weeks: None household members: spouse housing: house current occupational exposures/hazards: Yes caffeine: Yes Have you lived/traveled outside [place] in past 30 days?: No Contact w/someone who lives/traveled outside US past 30 days?: No Exposure to someone with infectious disease in past 14 days?: No Do you have a fever (greater than 100.4 F or 38 C)?: No Have you tested positive for COVID-19: No Exposed to someone with COVID-19 in past 14 days?: No Do you have a sore throat?: No Do you have a cough?: No Do you have any weakness?: No Do you have any diarrhea?: No Are you experiencing any unusual bleeding?: No Do you have any muscle aches/pain?: No Do you have any abdominal pain?: No Are you experiencing loss of taste or smell?: No Other Medical History Have you received the Flu Vaccine for this season: No Have you received the Pneumonia Vaccine: No <Jose Alberto Lucas MD - Last Filed: 04/16/24 15:13> ROS Obtained: Yes All systems reviewed & no additional complaints except as documented Physical Exam <Jose Alberto Lucas MD - Last Filed: 04/16/24 15:13> General General appearance: alert and in no apparent distress Neck Neck exam: Present trachea midline Chest Chest inspection: Present normal inspection and symmetric chest wall rise Respiratory Respiratory exam: Present normal lung sounds bilaterally; Absent respiratory distress, wheezes, stridor, accessory muscle use or prolonged expiratory phase Cardiovascular Cardiovascular exam: Present regular rate, normal rhythm and other (Pulses equal and symmetric in upper and lower extremities) Extremities Exam Extremities exam: Absent edema Neurological Exam Neurological exam: Present alert, oriented X3, CN II-XII intact and normal gait Skin Skin exam: Present warm and dry; Absent cyanosis, diaphoresis or pallor HEART Score <Jose Alberto Lucas MD - Last Filed: 04/16/24 15:13> HEART Score HEART Score assessment performed?: Yes HEART Score: 3 <Carmen Payan DO - Last Filed: 04/16/24 23:07> HEART Score History (anamnesis): Slightly suspicious ECG: Normal Age: 45-65 years Risk factors: 1-2 risk factors Troponin: </= normal limit HEART Score: 2 Critical Care <Jose Alberto Lucas MD - Last Filed: 04/16/24 15:13> Critical Care Time Critical Care Time: No Medical Decision Making <Jose Alberto Lucas MD - Last Filed: 04/16/24 15:13> Medical Records Medical records reviewed: Yes I reviewed the patient's medical records. Dru Inquiry Pt receiving controlled substance: No Dru was queried for this patient: No Vital Signs Vital Signs: 04/16/24 13:55 04/16/24 15:01 04/16/24 15:31 Temperature 98.0 F Temperature Source Oral Pulse Rate 63 59 L Pulse Rate [Right] 89 Respiratory Rate 19 19 18 Blood Pressure 118/70 113/70 Blood Pressure [Right Arm] 142/86 H Blood Pressure Mean [Right Arm] 104 Blood Pressure Source Blood Pressure Source [Right Arm] Automatic Cuff 02 Sat by Pulse Oximetry 98 94 L 95 Oxygen Delivery Method Room Air Room Air Room Air 04/16/24 16:01 04/16/24 16:31 04/16/24 17:00 Temperature Temperature Source Pulse Rate 58 L 63 62 Pulse Rate [Right] Respiratory Rate 20 18 19 Blood Pressure 96/65 L 107/47 L 121/82 Blood Pressure [Right Arm] Blood Pressure Mean [Right Arm] Blood Pressure Source Blood Pressure Source [Right Arm] 02 Sat by Pulse Oximetry 96 97 95 Oxygen Delivery Method Room Air 04/16/24 17:31 04/16/24 18:01 04/16/24 18:31 Temperature Temperature Source Pulse Rate 60 55 L 56 L Pulse Rate [Right] Respiratory Rate 14 19 17 Blood Pressure 110/70 118/75 121/66 Blood Pressure [Right Arm] Blood Pressure Mean [Right Arm] Blood Pressure Source Blood Pressure Source [Right Arm] 02 Sat by Pulse Oximetry 97 97 96 Oxygen Delivery Method 04/16/24 18:59 Temperature 98.0 F Temperature Source Oral Pulse Rate 58 L Pulse Rate [Right] Respiratory Rate 18 Blood Pressure 122/66 Blood Pressure [Right Arm] Blood Pressure Mean [Right Arm] Blood Pressure Source Automatic Cuff Blood Pressure Source [Right Arm] 02 Sat by Pulse Oximetry Oxygen Delivery Method Room Air Lab Data Labs: Lab Results 04/16/24 14:08: WBC 7.5, RBC 4.72, Hgb 14.9, Hct 43.6, MCV 92.4, MCH 31.6 H, MCHC 34.2, RDW 13.3, Plt Count 271, MPV 9.4, Neut % (Auto) 53.1, Lymph % (Auto) 38.9, [place] % (Auto) 6.4, Eos % (Auto) 0.9, Baso % (Auto) 0.3, Neut # (Auto) 4.0, Lymph # (Auto) 2.9, [place] # (Auto) 0.5, Eos # (Auto) 0.1, Baso # (Auto) 0.0, PT 9.5, INR 0.85 L, APTT Cancelled, Sodium 137, Potassium 3.7, Chloride 103, Carbon Dioxide 26, Anion Gap 11.7, BUN 16, Creatinine 0.70, Estimated GFR 89, Est GFR ( Amer) 108, Glucose 99, Calcium 9.0, Magnesium 1.9, Total Bilirubin 0.9, AST 36, ALT 21, Alkaline Phosphatase 98, Troponin I < 0.01, NT-Pro-B Natriuret Pep 34.6, Total Protein 7.3, Albumin 4.7, Globulin 2.6, Albumin/Globulin Ratio 1.8, HCV Ab LAURYN w/Rflx PCR Qn Negative, HIV Ag/Ab Combo Qual Negative 04/16/24 16:35: APTT 24.0, Troponin I < 0.01 04/16/24 14:08 04/16/24 14:08 Response Orders (Tests/Meds): ED MEDICATIONS Discontinued Medications Generic Name Dose Route Start Last Admin Trade Name Freq PRN Reason Stop Dose Admin Al Hydrox/Mg Hydrox/Simethicone 30 ml 04/16/24 16:19 04/16/24 16:34 Aluminum/Magnesium/Simethicone 30ml Udc PO 04/16/24 16:20 30 ml ONCE ONE Administration Aspirin 324 mg 04/16/24 14:15 04/16/24 14:26 Aspirin 81mg Chewable Tablet PO 04/16/24 14:16 324 mg ONCE ONE Administration Belladonna Alkaloids 60 ml 04/16/24 14:15 04/16/24 14:26 Belladonna Alkaloids 60 Ml Ml PO 04/16/24 14:16 60 ml ONCE ONE Administration Famotidine 20 mg 04/16/24 16:19 04/16/24 16:34 Famotidine 20mg Tablet PO 04/16/24 16:20 20 mg ONCE ONE Administration Nitroglycerin 0.4 mg 04/16/24 14:15 04/16/24 14:27 Nitroglycerin 0.4mg Sl Tablet SL 04/16/24 14:16 0.4 mg ONCE ONE Administration Pantoprazole Sodium 40 mg 04/16/24 16:19 04/16/24 16:34 Pantoprazole 40mg Tablet PO 04/16/24 16:20 40 mg ONCE ONE Administration ORDERS Category Date Time Status XR chest portable Stat Exams 04/16/24 14:06 Completed Complete Blood Count Auto Diff Stat Lab 04/16/24 14:08 Completed Comprehensive Metabolic Panel Stat Lab 04/16/24 14:08 Completed HIV Combo Stat Lab 04/16/24 14:08 Completed Hepatitis C Ab Qual. W/ RFX Stat Lab 04/16/24 14:08 Completed Magnesium Stat Lab 04/16/24 14:08 Completed NT Pro Brain Natriuretic Pep. Stat Lab 04/16/24 14:08 Completed PT INR [Prothrombin Time INR] Stat Lab 04/16/24 14:08 Completed PTT [Activated Partial Thrombo Time] Stat Lab 04/16/24 16:35 Completed Troponin I Q3H Lab 04/16/24 16:35 Completed Troponin I Stat Lab 04/16/24 14:08 Completed MDM Narrative Medical Decision Narrative: 48-year-old female history of esophageal spasms, idiopathic ventricular tachycardia on atenolol, pulmonary hypertension, hypertension, hyperlipidemia presenting with chest pain. Patient states that she thought she was having esophageal spasms yesterday, 30 in the PM. Since that time, has developed left-sided chest pain that radiates to her left side of her neck and down to her left arm. No shortness of breath, syncope, diaphoresis, nausea or vomiting. History was obtained via conversation with patient. On arrival, patient hemodynamically stable, alert, oriented x4, appropriate, GCS 15, moving all extremities spontaneously, pupils equal and reactive to light. Full physical exam performed and significant for very clinically well-appearing female no acute distress. Speaking in full sentences. Lungs are clear, cardiac exam without murmurs gallops or rubs. No lower extremity edema. Neurologically intact and ambulatory. Pulses equal and symmetric in upper and lower extremities. Differential includes esophageal spasm, ACS, AR, pneumothorax, pneumonia, among others Patient was given nitroglycerin, GI cocktail, aspirin for symptomatic management and correction of underlying abnormalities. Patient placed on continuous cardiac monitoring and continuous pulse ox with initial blood pressure 142/86, heart rate 89, saturation 98% on room air. Independent interpretation of EKG shows sinus rhythm 86 bpm NJ 152, QRS 90, QTc 388. Workup independently interpreted and significant for nonactionable CBC or chemistry, coags normal. Initial troponin and BNP negative. On independent interpretation of imaging, no acute cardiopulmonary space disease on chest x-ray. See radiology read for full review of final results. Heart score 3. Patient was placed in observation beginning at 2 PM in order to not evolving AR with delta troponin and determine need for admission versus home-going. The patient was provided serial exams, cardiac monitoring, delta troponin while awaiting results. Prior to final results, care handed off to oncoming physician Hop Trainer disclaimer Much of this encounter note is an electronic kitchen aide spoken language to printed text. Electronic kitchen aide of the spoken language may permit errors. Although I have reviewed the note, some errors may still exist. <Carmen Payan, DO - Last Filed: 04/16/24 23:07> Vital Signs Vital Signs: 04/16/24 13:55 04/16/24 15:01 04/16/24 15:31 Temperature 98.0 F Temperature Source Oral Pulse Rate 63 59 L Pulse Rate [Right] 89 Respiratory Rate 19 19 18 Blood Pressure 118/70 113/70 Blood Pressure [Right Arm] 142/86 H Blood Pressure Mean [Right Arm] 104 Blood Pressure Source Blood Pressure Source [Right Arm] Automatic Cuff 02 Sat by Pulse Oximetry 98 94 L 95 Oxygen Delivery Method Room Air Room Air Room Air 04/16/24 16:01 04/16/24 16:31 04/16/24 17:00 Temperature Temperature Source Pulse Rate 58 L 63 62 Pulse Rate [Right] Respiratory Rate 20 18 19 Blood Pressure 96/65 L 107/47 L 121/82 Blood Pressure [Right Arm] Blood Pressure Mean [Right Arm] Blood Pressure Source Blood Pressure Source [Right Arm] 02 Sat by Pulse Oximetry 96 97 95 Oxygen Delivery Method Room Air 04/16/24 17:31 04/16/24 18:01 04/16/24 18:31 Temperature Temperature Source Pulse Rate 60 55 L 56 L Pulse Rate [Right] Respiratory Rate 14 19 17 Blood Pressure 110/70 118/75 121/66 Blood Pressure [Right Arm] Blood Pressure Mean [Right Arm] Blood Pressure Source Blood Pressure Source [Right Arm] 02 Sat by Pulse Oximetry 97 97 96 Oxygen Delivery Method 04/16/24 18:59 Temperature 98.0 F Temperature Source Oral Pulse Rate 58 L Pulse Rate [Right] Respiratory Rate 18 Blood Pressure 122/66 Blood Pressure [Right Arm] Blood Pressure Mean [Right Arm] Blood Pressure Source Automatic Cuff Blood Pressure Source [Right Arm] 02 Sat by Pulse Oximetry Oxygen Delivery Method Room Air Lab Data Labs: Lab Results 04/16/24 14:08: WBC 7.5, RBC 4.72, Hgb 14.9, Hct 43.6, MCV 92.4, MCH 31.6 H, MCHC 34.2, RDW 13.3, Plt Count 271, MPV 9.4, Neut % (Auto) 53.1, Lymph % (Auto) 38.9, [place] % (Auto) 6.4, Eos % (Auto) 0.9, Baso % (Auto) 0.3, Neut # (Auto) 4.0, Lymph # (Auto) 2.9, [place] # (Auto) 0.5, Eos # (Auto) 0.1, Baso # (Auto) 0.0, PT 9.5, INR 0.85 L, APTT Cancelled, Sodium 137, Potassium 3.7, Chloride 103, Carbon Dioxide 26, Anion Gap 11.7, BUN 16, Creatinine 0.70, Estimated GFR 89, Est GFR ( Amer) 108, Glucose 99, Calcium 9.0, Magnesium 1.9, Total Bilirubin 0.9, AST 36, ALT 21, Alkaline Phosphatase 98, Troponin I < 0.01, NT-Pro-B Natriuret Pep 34.6, Total Protein 7.3, Albumin 4.7, Globulin 2.6, Albumin/Globulin Ratio 1.8, HCV Ab LAURYN w/Rflx PCR Qn Negative, HIV Ag/Ab Combo Qual Negative 04/16/24 16:35: APTT 24.0, Troponin I < 0.01 Response Orders (Tests/Meds): ED MEDICATIONS Discontinued Medications Generic Name Dose Route Start Last Admin Trade Name Freq PRN Reason Stop Dose Admin Al Hydrox/Mg Hydrox/Simethicone 30 ml 04/16/24 16:19 04/16/24 16:34 Aluminum/Magnesium/Simethicone 30ml Udc PO 04/16/24 16:20 30 ml ONCE ONE Administration Aspirin 324 mg 04/16/24 14:15 04/16/24 14:26 Aspirin 81mg Chewable Tablet PO 04/16/24 14:16 324 mg ONCE ONE Administration Belladonna Alkaloids 60 ml 04/16/24 14:15 04/16/24 14:26 Belladonna Alkaloids 60 Ml Ml PO 04/16/24 14:16 60 ml ONCE ONE Administration Famotidine 20 mg 04/16/24 16:19 04/16/24 16:34 Famotidine 20mg Tablet PO 04/16/24 16:20 20 mg ONCE ONE Administration Nitroglycerin 0.4 mg 04/16/24 14:15 04/16/24 14:27 Nitroglycerin 0.4mg Sl Tablet SL 04/16/24 14:16 0.4 mg ONCE ONE Administration Pantoprazole Sodium 40 mg 04/16/24 16:19 04/16/24 16:34 Pantoprazole 40mg Tablet PO 04/16/24 16:20 40 mg ONCE ONE Administration ORDERS Category Date Time Status XR chest portable Stat Exams 04/16/24 14:06 Completed Complete Blood Count Auto Diff Stat Lab 04/16/24 14:08 Completed Comprehensive Metabolic Panel Stat Lab 04/16/24 14:08 Completed HIV Combo Stat Lab 04/16/24 14:08 Completed Hepatitis C Ab Qual. W/ RFX Stat Lab 04/16/24 14:08 Completed Magnesium Stat Lab 04/16/24 14:08 Completed NT Pro Brain Natriuretic Pep. Stat Lab 04/16/24 14:08 Completed PT INR [Prothrombin Time INR] Stat Lab 04/16/24 14:08 Completed PTT [Activated Partial Thrombo Time] Stat Lab 04/16/24 16:35 Completed Troponin I Q3H Lab 04/16/24 16:35 Completed Troponin I Stat Lab 04/16/24 14:08 Completed MDM Narrative Medical Decision Narrative: 48-year-old female history of esophageal spasms, idiopathic ventricular tachycardia on atenolol, pulmonary hypertension, hypertension, hyperlipidemia presenting with chest pain. Patient states that she thought she was having esophageal spasms yesterday, 30/30 in the PM. Since that time, has developed left-sided chest pain that radiates to her left side of her neck and down to her left arm. No shortness of breath, syncope, diaphoresis, nausea or vomiting. History was obtained via conversation with patient. On arrival, patient hemodynamically stable, alert, oriented x4, appropriate, GCS 15, moving all extremities spontaneously, pupils equal and reactive to light. Full physical exam performed and significant for very clinically well-appearing female no acute distress. Speaking in full sentences. Lungs are clear, cardiac exam without murmurs gallops or rubs. No lower extremity edema. Neurologically intact and ambulatory. Pulses equal and symmetric in upper and lower extremities. Differential includes esophageal spasm, ACS, AR, pneumothorax, pneumonia, among others Patient was given nitroglycerin, GI cocktail, aspirin for symptomatic management and correction of underlying abnormalities. Patient placed on continuous cardiac monitoring and continuous pulse ox with initial blood pressure 142/86, heart rate 89, saturation 98% on room air. Independent interpretation of EKG shows sinus rhythm 86 bpm NJ 152, QRS 90, QTc 388. Workup independently interpreted and significant for nonactionable CBC or chemistry, coags normal. Initial troponin and BNP negative. On independent interpretation of imaging, no acute cardiopulmonary space disease on chest x-ray. See radiology read for full review of final results. Heart score 3. Patient was placed in observation beginning at 2 PM in order to not evolving AR with delta troponin and determine need for admission versus home-going. The patient was provided serial exams, cardiac monitoring, delta troponin while awaiting results. Prior to final results, care handed off to oncoming physician Hop Trainer disclaimer Much of this encounter note is an electronic kitchen aide spoken language to printed text. Electronic kitchen aide of the spoken language may permit errors. Although I have reviewed the note, some errors may still exist. DO Schuyler: On my assessment of the patient, she had some recurrence of symptoms but was initially feeling a lot better. Symptoms were successfully treated again with Maalox, Pepcid, PPI. She is feeling a lot better after this with normal vitals on cardiac telemetry. Workup reassuring with normal CBC, normal chemistry, negative troponins x 2. I discussed with the patient that the symptoms could be worsening because the Ozempic that she started for weight loss, it also could be related to esophageal spasm/ulceration, GERD, or cardiac dysfunction that is not acute AR. She expressed understanding agreement and will follow-up outpatient with primary care, cardiology, GI. I feel she is appropriate for discharge at 1845. Patient was in ED observation status for 4 hours and 45 minutes. Strict return precautions given at time of discharge
[2024-04-16] MEDS: ASPIRIN 81MG CHEWABLE TABLET 324 MG PO (14:26)
[2024-04-16] MEDS: BELLADONNA ALKALOIDS 60 ML ML PO (14:26)
[2024-04-16] MEDS: NITROGLYCERIN 0.4MG SL TABLET 0.4 MG SL (14:27)
[2024-04-16 14:50] LABS: INR 0.85 (0.9-1.1); Prothrombin Time 9.5 seconds (9.2-12.1)
[2024-04-16 14:51] LABS: Albumin Level 4.7 g/dl (3.5-5.0); Chloride 103 mmol/L (98-107); Potassium 3.7 mmoL/L (3.5-5.1); Sodium 137 mmol/L (136-145)
[2024-04-16 14:54] LABS: Alanine Aminotransferase 21 U/L (12-78); Albumin/Globulin Ratio 1.8 (1.1-1.8); Alkaline Phosphatase 98 U/L (38-126); Anion Gap 11.7 mEq/L (5-15); Aspartate Amino Transferase 36 U/L (14-36); Bilirubin,Total 0.9 mg/dl (0.2-1.3); Blood Urea Nitrogen 16 mg/dl (7-17); Carbon Dioxide 26 mmol/L (22.0-30.0); Estimated Glomerular Filt Rate 89 ml/min (>60); GFR (African American) 108 ML/MIN (>60); Globulin 2.6 g/dL (1.3-3.2); Glucose 99 mg/dl (74-100); Total Protein,Serum 7.3 g/dl (6.3-8.2)
[2024-04-16 14:55] LABS: Magnesium 1.9 mg/dl (1.6-2.3)
[2024-04-16 15:04] LABS: NT Pro Brain Natriuretic Pep. 34.6 pg/mL (0-125)
[2024-04-16 15:05] LABS: Basophils % 0.3 % (0.1-2.0); Eosinophils # 0.1 K/mm3 (0.0-0.4); Eosinophils % 0.9 % (0.1-12.0); Hematocrit 43.6 % (37.0-47.0); Hemoglobin 14.9 g/dL (12.2-16.2); Lymphocytes # 2.9 K/mm3 (0.7-4.5); Lymphocytes % 38.9 % (10-50); Mean Corpuscular HGB Conc 34.2 g/dL (31.8-35.4); Mean Corpuscular Hemoglobin 31.6 pg (27.0-31.2); Mean Corpuscular Volume 92.4 fl (81-99); Mean Platelet Volume 9.4 fl (7.4-10.4); Monocytes # 0.5 K/mm3 (0.1-1.0); Monocytes % 6.4 % (1.7-9.3); Neutrophils % 53.1 % (37.0-80.0); Platelet Count 271 K/mm3 (142-424); Red Blood Count 4.72 M/mm3 (4.20-5.40); Red Cell Distribution Width 13.3 % (11.5-17.5); White Blood Count 7.5 K/mm3 (4.8-10.8)
[2024-04-16 15:07] LABS: Troponin I < 0.01 ng/ml (0.00-0.034)
[2024-04-16] MEDS: FAMOTIDINE 20MG TABLET 20 MG PO (16:34)
[2024-04-16] MEDS: ALUMINUM/MAGNESIUM/SIMETHICONE 30ML UDC 30 ML PO (16:34)
[2024-04-16] MEDS: PANTOPRAZOLE 40MG TABLET 40 MG PO (16:34)
--- NOTE | 2024-04-16 16:37 | PC.NURSE ---
Collected repeat troponin and new sample for a re-run PTT. Lab aware a new sample is headed their way and to run this new sample.
[2024-04-16 17:01] LABS: HIV Combo NEGATIVE (Negative)
[2024-04-16 17:08] LABS: Hepatitis C Ab Qual. W/ RFX NEGATIVE (Negative)
[2024-04-16 18:00] LABS: Troponin I < 0.01 ng/ml (0.00-0.034)
== END 2024-04-16 19:00 | disposition home or self-care (01) ==
PROVIDERS: Emergency Medicine; Emergency Provider Emergency Medicine
DX: R07.9 Chest pain, unspecified (principal); Z87.891 Personal history of nicotine dependence
CPT/HCPCS: 71045; 80053; 83735; 83880; 84484; 85025; 85610; 85730; 86803; 87389; 93005; 99284

== ENCOUNTER 2024-05-26 11:25 | Outpatient (CLI) | payer BC, SELFPAY ==
[2024-05-26 20:57] LABS: Coronavirus 19, PCR Not Detected (NotDetected); Human Rhinovirus Not Detected (NotDetected); Influenza A, PCR Not Detected (NotDetected); Influenza B, PCR Not Detected (NotDetected); Respiratory Syncytial Virus Not Detected (NotDetected)
== END 2024-05-26 23:59 | disposition home or self-care (01) ==
LOC: LAB.DROPOF 05-28 11:26
PROVIDERS: PCP Family Medicine; Visit Provider Nurse Practitioner
DX: N39.0 Urinary tract infection, site not specified (principal); B96.5 Pseudomonas (aeruginosa) (mallei) (pseudomallei) as the cause of diseases classified elsewhere; R52 Pain, unspecified
CPT/HCPCS: 87086; 87088; 87186; 87631

== ENCOUNTER 2024-08-01 11:19 | Outpatient (CLI) | payer BC, SELFPAY ==
--- OUTSIDE RECORDS SUMMARY | 2024-06-19 08:00 | XMS_ITS | Encounter Summary ---
Author Organization [facility] Address [address] [place] [address] Care Team Providers Care World Travel Counselor Name Role Phone Nicole Brady MD Primary Care Provider [phone] Reason for Visit * Reason Comments Weight Loss Follow-up Encounter Details Date Type Department Care Team (Latest Contact Info) Description 06/19/2024 8:00 AM EDT Office Visit [facility] [address] [place] [address] Nicole Brady MD [address] [place] [address] Recent urinary tract infection (Primary Dx); Pseudomonas urinary tract infection; Morbid obesity (CMS/HCC); Other specified hypothyroidism Social History Tobacco Use Types Packs/Day Years Used Date Smoking Tobacco: Former Cigarettes 1.5 28.4 1 - 03/24/2014 Passive Smoke Exposure: Past Smokeless Tobacco: Never Alcohol Use Standard Drinks/Week Comments Yes 6 (1 standard drink = 0.6 oz pur e alcohol) Humiliation, Afraid, Rape, and Kick questionnair e Answer Date Recorded Within the last year, have y ou been afraid of your partner or ex-partner? No 02/27/2024 Within the last year, have y ou been humiliated or emotionally abused in other ways by your partner or ex-partner? No Within the last year, have y ou been kicked, hit, slapped, or otherwise physically hurt by your partner or ex-partner? No 02/27/2024 Within the last year, have y ou been raped or forced to have any kind of sexual activity by your partner or ex-partner? No 02/27/2024 Social Connection and Isolation Panel Answer Date Recorded In a typical week, how many times do you talk on the phone with family, friends, or neighbors? More than three times a week 09/06/2023 How often do you get togethe r with friends or relatives? More than three times a week 09/06/2023 How often do you attend chur or zoroastrianism services? Never 09/06/2023 Do you belong to any clubs o r organizations such as congregation groups, unions, fraternal or athletic groups, or school groups? No 09/06/2023 How often do you attend meet ings of the clubs or organizations you belong to? Never 09/06/2023 Are you , , di vorced, , never , or living with a partner? 09/06/2023 AUDIT-C Answer Date Recorded Q1: How often do you have a drink containing alc ohol? 2-3 times a week 09/06/2023 Q2: How many drinks containi ng alcohol do you have on a typical day when you are drinking? 1 or 2 09/06/2023 Q3: How often do you have si x or more drinks on one occasion? Less than monthly 09/06/2023 Overall Financial Resource Strain (CARDIA) Answe r Date Recorded How hard is it for you to pa y for the very basics like food, housing, medical care, and heating? Not hard at all 09/06/2023 PHQ-2 Answer Date Recorded Patient Health Questionnaire-2 Score 0 04/30/2024 [facility] - Occupational Stress Questionnaire Answer Date Recorded Do you feel stress - tense, restless, nervous, or anxious, or unable to sleep at night because your mind is troubled all the time - these days? Not at all 09/06/2023 Exercise Vital Sign Answer Date Recorde d On average, how many days pe r week do you engage in moderate to strenuous exercise (like a brisk walk)? 5 days 09/06/2023 On average, how many minutes do you engage in exercise at this level? 60 min 09/06/2023 Hunger Vital Sign Answer Date Recorded Within the past 12 months, y ou worried that your food would run out before you got the money to buy more. Never true 02/26/19 25 Within the past 12 months, t he food you bought just didn't last and you didn't have money to get more. Never true 02/27/2024 PRAPARE - Transportation Answer Date Re corded In the past 12 months, has l ack of transportation kept you from medical appointments or from getting medications? No 02/13 In the past 12 months, has l ack of transportation kept you from meetings, work, or from getting things needed for daily living? No 02/27/2024 Housing Stability Vital Sign Answer Torres e Recorded In the last 12 months, was t here a time when you were not able to pay the mortgage or rent on time? No 09/06/2023 In the last 12 months, how many places have you lived? 1 09/06/2023 In the last 12 months, was t here a time when you did not have a steady place to sleep or slept in a long term (including now)? No 09/06/2023 PHQ-9 Answer Date Recorded Patient Health Questionnaire-9 Score 0 02/27/2024 Housing Stability Vital Sign Answer Torres e Recorded In the last 12 months, was t here a time when you were not able to pay the mortgage or rent on time? No 02/27/2024 In the past 12 months, how m any times have you moved where you were living? 0 02/27/2024 At any time in the past 12 m [facility], were you homeless or living in a long term (including now)? No 02/27/2024 Utilities Answer Date Recorded In the past 12 months has th e electric, gas, oil, or water company threatened to shut off services in your home? No 02/27/2024 PHQ-2A Answer Date Recorded Patient Health Questionnaire-2 Score 1 12/21/2022 Comments No Sex and Gender Information Value Date Recorded Sex Assigned at Female 08/27/2020 3:26 PM EDT Legal Sex Female 6:28 PM EDT Gender Identity Female 08/27/2020 3:26 PM EDT Sexual Orientation Not on file documented as of this encounter Last Filed Vital Signs Vital Sign Reading Time Taken Comments Blood Pressure 120/80 06/19/2024 8:02 AM EDT Pulse 73 06/19/2024 8:02 AM EDT Temperature 36.7 C (98.1 F) 06/19/2024 8:02 AM EDT Respiratory Rate 16 06/19/2024 8:02 AM EDT Oxygen Saturation 95% 06/19/2024 8:02 AM EDT Inhaled Oxygen Concentration - - Weight 105 kg (231 lb 0.7 oz) 06/19/2024 8:02 AM EDT Height 167.6 cm (5' 6 ) 06/19/2024 8:02 AM EDT Body Mass Index 37.29 06/19/2024 8:02 AM EDT documented in this encounter Functional Status * Calculated C-SSRS Risk Score (Lifetime/Recent) Answer Date of Assessment Author No Risk Indicated 06/19/2024 8:07 AM EDT Camryn Babin * Question Answer Date of Assessment Author 1. Wish to be (Past 1 Month) No 025 8:07 AM EDT Camryn Babin 2. Non-Specific Active Suici roxana Thoughts (Past 1 Month) No 06/19/2024 8:07 AM EDT Camryn Babin 6. Suicidal Behavior (Lifetime) No 8:07 AM EDT Camryn Babin documented as of this encounter Miscellaneous Notes * Progress Notes - Nicole Brady MD - 06/19/2024 8:00 AM EDT Subjective Patient ID: Jessie Nicole is a 48 y.o. female. Chief Complaint Patient presents with Weight Loss Follow-up HPI Muscle pain improving a lot with PT, does have EMG tomorrow. Saw pain and PMR. Body mass index is 37.29 kg/m??. Weight down another 13# on wegovy, tolerating 1.7mg and ready to increase. Almost to post-gastric surgery weight! Previous GI symptoms improved! On levo 150mcg, last TSH out of range but had been missing meds. Had pseudomonas UTI and only had odor to urine and weakness. Finished abx. Unsure if odor returning. Current Medications[1] Pertinent review of systems has been performed and negative except as noted in HPI. Pertinent areas of the chart reviewed include social, family, past medical and surgical history. Objective Physical Exam Vitals and nursing note reviewed. Constitutional: General: She is not in acute distress. Appearance: Normal appearance. She is well-developed. She is not toxic-appearing. HENT: Head: Normocephalic and atraumatic. Nose: Nose normal. Eyes: Conjunctiva/sclera: Conjunctivae normal. Cardiovascular: Rate and Rhythm: Normal rate. Pulmonary: Effort: Pulmonary effort is normal. Skin: General: Skin is warm and dry. Neurological: Mental Status: She is alert and oriented to person, place, and time. Gait: Gait normal. Psychiatric: Mood and Affect: Mood normal. Behavior: Behavior normal. Thought Content: Thought content normal. Assessment/Plan Diagnoses and all orders for this visit: Recent urinary tract infection - Urine Culture Pseudomonas urinary tract infection - Urine Culture Morbid obesity (CMS/HCC) - Semaglutide-Weight Management (Wegovy) 2.4 MG/0.75ML solution auto-injector; Inject 2.4 mg under the skin 1 time per week. Other specified hypothyroidism - Thyroid Stimulating Hormone, Plasma Recheck urine, maybe recurrence of symptoms? Obesity improving, increase wegovy. TSH due today, goal 1-2 No follow-ups on file. Note to patient: The Century Cures Act makes medical notes like these available to patients inthe interest of transparency. However, be advised this is a medical document. It is intended as peer to peer communication. It is written in medical language and may contain abbreviations or verbiagethat are unfamiliar. It may appear blunt or direct. Medical documents are intended to carry relevant information, facts as evident, and the clinical opinion of the practitioner. [1] Current Outpatient Medications: acetaminophen (Tylenol) 325 MG tablet, Take 2 tablets (650 mg) by mouth if needed., Disp: , Rfl: atenolol (Tenormin) 25 MG tablet, Take 1 tablet (25 mg) by mouth 1 (one) time each day., Disp: , Rfl: cyclobenzaprine (Flexeril) 10 MG tablet, Take 1 tablet (10 mg) by mouth at night if needed (shoulder/joint pain)., Disp: 30 tablet, Rfl: 3 ibuprofen 200 MG tablet, Take 2 tablets (400 mg) by mouth every 8 (eight) hours if needed for mild pain., Disp: , Rfl: lansoprazole (Prevacid) [address] capsule, Take 1 capsule (30 mg) by mouth 2 (two) times a day., Disp: , Rfl: levothyroxine (Synthroid, Levoxyl) 150 MCG tablet, TAKE 1 TABLET(150 MCG) BY MOUTH 1 TIME EACH DAY,Disp: 90 tablet, Rfl: 2 methocarbamol (Robaxin) 500 MG tablet, Take 1 tablet (500 mg) by mouth 2 (two) times a day., Disp: 60 tablet, Rfl: 3 multivitamin (Theragran-M) tablet, Take 1 tablet by mouth 1 (one) time each day., Disp: , Rfl: Semaglutide-Weight Management (Wegovy) 2.4 MG/0.75ML solution auto-injector, Inject 2.4 mg under the skin 1 time per week., Disp: 3 mL, Rfl: 11 documented in this encounter Plan of Treatment Upcoming Encounters Date Type Department Care Team (Late st Contact Info) Description 10/01/2024 3:15 PM EDT Appointment [facility] [address] [address] documented as of this encounter Procedures Procedure Name Priority Date/Time Associated Diagnosis Comments TSH Routine 06/19/2024 8:28 AM EDT Other specified hypothyroidism URINE CULTURE Routine 06/19/2024 8:19 AM EDT Recent urinary tract infection Pseudomonas urinary tract infection documented in this encounter Results * (ABNORMAL) Thyroid Stimulating Hormone, Plasma (06/19/2024 8:28 AM EDT) Thyroid Stimulating Hormone, Plasma 0.35(L) 0.40 - 4.20 uIU/mL 06/19/2024 2:49 PM EDT [facility] Blood Venous blood specimen / Unknown Venipuncture / Unknown 06/19/2024 8:28 AM EDT 06/19/2024 8:28 AM EDT Narrative [facility] - 06/19/2024 2:49 PM EDT Trimester Specific Ranges TSH ( IU/mL) 1st Trimester 0.1 - 3.0 2nd Trimester 0.19 - 4.06 3rd Trimester 0.3 - 3.7 us Nicole Brady MD LAB BLOOD ORDERABLES Final Res ult Performing Organization Address [facility] de Phone Number [facility] [address] [place] [address] * (ABNORMAL) Urine Culture (06/19/2024 8:19 AM EDT) Culture <10,000 CFU/mL Gram positive cocci(A) 06/21/2024 12:39 PM EDT [facility] Comment:Organisms not identi fied due to low colony count with no indication of pyuria, dysuria, urethritis, hematuria, and/or pyelonephritis. Urine Urine specimen obtained by clean catch procedure / Unknown Non-blood Collection / Unknown 06/19/2024 8:19 AM EDT 06/19/2024 8:19 AM EDT us Nicole Brady MD LAB MICROBIOLOGY - GENERAL ORD ERABLES Final Result Performing Organization Address [facility] de Phone Number [facility] [address] [place] [address] documented in this encounter Visit Diagnoses Diagnosis Recent urinary tract infection- Primary Pseudomonas urinary tract infection Morbid obesity (CMS/HCC) Morbid obesity Other specified hypothyroidism documented in this encounter Additional Health Concerns Assessment Noted Time PHQ-9 Depression Total Score: 0 02/26/19 25 9:18 AM EST A fall risk assessment has been complete d for the patient 04/30/2024 7:58 AM EDT A Body Mass Index follow-up plan has been documented for the patient 06/19/2024 8:20 AM EDT documented as of this encounter Care Teams World Travel Counselor Relationship Specialty Start Date End Date Nicole Brady MD [address] [place] [phone] PCP - General 06/26/20 documented as of this encounter
--- OUTSIDE RECORDS SUMMARY | 2024-06-20 09:30 | XMS_ITS | Encounter Summary ---
Author Organization [facility] Address [address] [place] [address] Care Team Providers Care Architecture Intern Name Role Phone Nicole Brady MD Primary Care Provider [phone] Reason for Visit * Other Medical (Routine) - Closed Specialty Diagnoses / Procedures Referred By Contleda t Referred To Contact Neurology Diagnoses Radiculopathy, cervical region Procedures EMG / Nerve Conduction Study Hi Cruz MD [address] [place] [address] Phone: tel: fax: Referral ID Status Reason Start Date Expiration Date V isits Requested Visits Authorized [id number] Closed Specialty Services Required 03/01/2024 08/31/2025 1 1 Encounter Details Date Type Department Care Team (Late st Contact Info) Description 06/20/2024 9:30 AM EDT Procedure Visit [facility] [address] [address] Jeffery Balderas, [address] [place] [address] Radiculopathy, cervical region Social History Tobacco Use Types Packs/Day Years Used Date Smoking Tobacco: Former Cigarettes 1.5 28.4 1 - 03/24/2014 Passive Smoke Exposure: Past Smokeless Tobacco: Never Tobacco Cessation:Counseling Given: Not Answered Alcohol Use Standard Drinks/Week Comments Yes 6 [...] week 09/06/2023 How often do you attend [facility] or jew services? Never 09/06/2023 Do you belong to any clubs o r organizations such as jainism groups, unions, fraternal or athletic groups, or [...] Recorded Patient Health Questionnaire-2 Score 0 04/30/2024 [facility] - Occupational Stress [...] place to sleep or slept in a custodial (including now)? No 09/06/2023 PHQ-9 Answer Date [...] any time in the past 12 m [facility], were you homeless or living in a custodial (including now)? No 02/27/2024 Utilities Answer Date [...] Sign Reading Time Taken Comments Blood Pressure 117/77 06/20/2024 9:36 AM EDT Pulse 64 06/20/2024 9:36 AM EDT Temperature - - Respiratory Rate - - Oxygen Saturation 98% 06/20/2024 9:36 AM EDT Inhaled Oxygen Concentration - - Weight 105 kg (231 lb) 06/20/2024 9:36 AM EDT Height 167.6 cm (5' 6 ) 06/20/2024 9:36 AM EDT Body Mass Index 37.28 06/20/2024 9:36 AM EDT documented in this encounter Miscellaneous Notes * Progress Notes - Jeffery Balderas DO - 06/20/2024 9:30 AM EDTAssociated Order(s): EMG / Nerve Conduction Study Pre-Procedure Diagnose(s): Radiculopathy, cervical region Post-Procedure Diagnose(s): Radiculopathy, cervical region Images from the original note were not included. Patient ID: Jessie Nicole is a 48 y.o. female. Encounter Diagnosis Name Primary? Radiculopathy, cervical region EMG / Nerve Conduction Study Date/Time: 06/20/2024 9:30 AM Performed by: Jeffery Balderas DO Authorized by: Hi Cruz MD Consent: Consent obtained: Written and verbal Consent given by: Patient Risks, benefits, and alternatives were discussed: yes Risks discussed: Bleeding, infection and pain [facility] protocol: Procedure explained and questions answered to patient or proxy's satisfaction: yes Immediately prior to procedure, a time out was called: yes Patient identity confirmed: Verbally with patient Indications: Indications: Paresthesias Pre-procedure details: Procedure prep: alcohol swap prior to insertion of EMG electrode. Sedation: Sedation type: None Anesthesia: Anesthesia method: None Post-procedure details: Procedure completion: Tolerated well, no immediate complications [facility] [place] [address] Test Date: 06/20/2024 Patient: Jessie Nicole : 1975 Physician: Jeffery Balderas DO Sex: Female Height: 5' 6 Ref Phys: Hi Cruz MD ID#: [id number] Weight: 231 lbs. 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 Patient referred by Dr. Hi Cruz with concerns for left cervical radiculopathy. Patients states has no symptoms in her right upper extremity and wishes study to be performed only in E. NCS & EMG Findings: The left median motor study revealed normal onset latency, normal amplitudes, and normal conductionvelocity (Elbow-Wrist). The left ulnar motor study revealed normal onset latency, normal amplitudes, normal conduction velocity (B Elbow-Wrist), and normal conduction velocity (A Elbow-B Elbow). The left median (across palm) sensory study revealed normal peak latency (Wrist), normal amplitude,and normal peak latency (Palm). The left ulnar sensory study revealed normal peak latency and normal amplitude. The left median/radial (dig I) comparison study revealed normal peak latency (Median), normal amplitude (Median), normal peak latency (Radial), normal amplitude (Radial), and normal peak latency difference (Median-Radial). Concentric EMG evaluation of left APB, FDI, Pronator teres, Biceps, Triceps and Deltoid muscles revealed normal insertional activity, no abnormal spontaneous activity and the voluntary MUAPs were within normal limits. I was present for and performed the entire procedure, interpretation of the results and completion of the report. Dr. Yoanna Huizar observed the procedure. Impression: No electrodiagnostic evidence of a left median, ulnar neuropathies. No electrodiagnostic evidence of a C5-T1 motor radiculopathy in the nerves and muscles tested. Yoanna Huizar MD Jeffery Balderas, DO Nerve Conduction Studies Anti Sensory Summary Table Stim Site NR Peak (ms) Norm Peak (ms) P-T Amp (??V) Norm P-T Amp Site1 Site2 Delta-P (ms) Dist (cm)Evaristo (m/s) Norm Evaristo (m/s) NCV Left Median Acr Palm Anti Sensory (3rd Digit) 33.5 ??C Wrist 3.2 <3.7 60.7 >20 Wrist 3rd Digit 3.2 14.0 44 Palm 1.8 <1.9 75.8 Palm 3rd Digit 1.8 7.0 39 NCV Left Ulnar Anti Sensory (5th Digit) 32.3 ??C Wrist 3.3 <3.7 52.6 >20 Wrist 5th Digit 3.3 14.0 42 Motor Summary Table Stim Site NR Onset (ms) Norm Onset (ms) O-P Amp (mV) Norm O-P Amp Site1 Site2 Delta-0 (ms) Dist (cm) Evaristo (m/s) Norm Evaristo (m/s) NCV Left Median Motor (Abd Poll Brev) 32 ??C Wrist 3.0 <4.3 10.1 >4 Elbow Wrist 4.3 26.0 60 >45 Elbow 7.3 9.9 NCV Left Ulnar Motor (Abd Dig Minimi) 31.5 ??C Wrist 3.0 <4.3 6.9 >2 B Elbow Wrist 3.1 18.0 58 >45 B Elbow 6.1 6.7 A Elbow B Elbow 2.2 14.0 64 >45 A Elbow 8.3 6.5 Comparison Summary Table Stim Site NR Peak (ms) Norm Peak (ms) P-T Amp (??V) Norm P-T Amp Site1 Site2 Delta-P (ms) Norm Delta (ms) NCV Left Median/Radial Dig I Comparison (Digit 1) 32.4 ??C Median 2.6 <3.2 50.5 >20 Median Radial 0.2 <0.4 Radial 2.4 <2.9 8.6 >5 EMG Side Muscle Nerve Root Ins Act Fibs Psw Other Amp Dur Poly Recrt Comment Left Abd Poll Brev Median C8-T1 Nml 0 0 Nml Nml 0 Nml Left 1stDorInt Ulnar C8-T1 Nml 0 0 Nml Nml 0 Nml Left PronatorTeres Median C6-7 Nml 0 0 Nml Nml 0 Nml Left Biceps Musculocut C5-6 Nml 0 0 Nml Nml 0 Nml Left Triceps Radial C6-7-8 Nml 0 0 Nml Nml 0 Nml Left Deltoid Axillary C5-6 Nml 0 0 Nml Nml 0 Nml Waveforms: documented in this encounter Plan of Treatment Upcoming Encounters Date Type Department Care Team (Late st Contact Info) Description 10/01/2024 3:15 PM EDT Appointment [facility] [address] [address] documented as of this encounter Procedures Procedure Name Priority Date/Time Associated Diagnosis Comments EMG / NERVE CONDUCTION STUDY Routine 06/20/2024 9:30 AM EDT Radiculopathy, cervical region documented in this encounter Results * EMG / NERVE CONDUCTION STUDY (06/20/2024 9:30 AM EDT) Anatomical Region Laterality Modality Other Narrative 06/20/2024 9:30 AM EDT Jeffery Balderas DO 06/26/2024 12:00 PM EMG / Nerve Conduction Study Date/Time: 06/20/2024 9:30 AM Performed by: Jeffery Balderas DO Authorized by: Hi Cruz MD Consent: Consent obtained: Written and verbal Consent given by: Patient Risks, benefits, and alternatives were discussed: yes Risks discussed: Bleeding, infection and pain [facility] protocol: Procedure explained and questions answered to patient or proxy's satisfaction: yes Immediately prior to procedure, a time out was called: yes Patient identity confirmed: Verbally with patient Indications: Indications: Paresthesias Pre-procedure details: Procedure prep: alcohol swap prior to insertion of EMG electrode. Sedation: Sedation type: None Anesthesia: Anesthesia method: None Post-procedure details: Procedure completion: Tolerated well, no immediate complications us Hi Cruz MD NEUROLOGY ORDERABLES Final Re sult documented in this encounter Visit Diagnoses Diagnosis Radiculopathy, cervical region Brachial neuritis or radiculitis nos documented in this encounter Additional Health Concerns Assessment Noted Time PHQ-9 Depression Total Score: 0 02/26/19 25 9:18 AM EST A fall risk assessment has been complete d for the patient 06/20/2024 9:37 AM EDT A Body Mass Index follow-up plan has been documented for the patient 06/26/2024 12:00 PM EDT documented as of this encounter Care Teams Architecture Intern Relationship Specialty Start Date End Date Nicole Brady MD [address] [place] [address] PCP - General 06/26/20 documented as of this encounter
[2024-08-01 15:14] LABS: Coronavirus 19, PCR Not Detected (NotDetected); Influenza A, PCR Not Detected (NotDetected); Influenza B, PCR Not Detected (NotDetected); Respiratory Syncytial Virus Not Detected (NotDetected)
[2024-08-01 17:40] LABS: Human Rhinovirus Detected (NotDetected)
--- OUTSIDE RECORDS SUMMARY | 2024-08-02 13:48 | XMS_ITS | Encounter Summary ---
Author Organization [facility] Address [address] [place] [address] Care Team Providers Care Artificial Stone Setter Name Role Phone Nicole Brady MD Primary Care Provider [phone] Encounter Details Date Type Department Care Team (Late st Contact Info) Description 04/27/2023 Lab Requisition [facility] [address] [place] [address] [place] [address] [place] [phone] Functional dyspepsia Social History Tobacco Use Types Packs/Day Years Used Date Smoking Tobacco: Former Cigarettes 1.5 28.4 1 - 03/24/2014 Passive Smoke Exposure: Past Smokeless Tobacco: Never Alcohol Use Standard Drinks/Week Comments Yes 6 (1 standard drink = 0.6 oz pur e alcohol) PHQ-2 Answer Date Recorded Patient Health Questionnaire-2 Score 0 03/13/2023 PHQ-2A Answer Date Recorded Patient Health Questionnaire-2 Score 1 12/21/2022 Comments No Sex and Gender Information Value Date Recorded Sex Assigned at Female 08/27/2020 3:26 PM EDT Legal Sex Female 6:28 PM EDT Gender Identity Female 08/27/2020 3:26 PM EDT Sexual Orientation Not on file documented as of this encounter Plan of Treatment Upcoming Encounters Date Type Department Care Team (Late st Contact Info) Description 10/01/2024 3:15 PM EDT Appointment [facility] [address] [place] [address] documented as of this encounter Procedures Procedure Name Priority Date/Time Associated Diagnosis Comments SURGICAL PATHOLOGY EXAM Routine 04/27/2023 Functional dyspepsia documented in this encounter Results * Surgical Pathology Exam (04/27/2023) Case Report Surgical Pathology Case: [id number] Authorizing Provider: Bradley Myers MD Collected: 04/27/2023 Ordering Location: [facility] Lab Received: 04/27/2023 1059 Pathologist: Taylor Ferguson MD Specimen: Gastric biopsy, Gastric Biopsy 04/28/2023 2:39 PM EDT [facility] Final Diagnosis STOMACH, BIOPSY: - REACTIVE GASTROPATHY AND PREVIOUS EROSION WITH ASSOCIATED MILD CHRONIC INFLAMMATION. - NO H. PYLORI ORGANISMS IDENTIFIED ON H&E SLIDE. 04/28/2023 2:39 PM EDT [facility] at 1439 EDT Clinical Information K30 - Functional dyspepsia [ICD-10-CM] 04/28/2023 2:39 PM EDT [facility] Gross Description A. GASTRIC BIOPSY The specimen is received in formalin labeled g astric biopsy . Consists of 2 fragments of pink-hernandez mucosa, measuring 0.4 cm in greatest dimension. The specimen is submitted entirely in cassette A1. Christian Arnol 04/28/2023 2:39 PM EDT [facility] Note: A resident was involved in the service. I attest I examined the relevant preparations for the specimens and confirmed the diagnosis or interpretation. 04/28/2023 2:39 PM EDT [facility] Tissue Gastric biopsy specimen / Unknown 04/27/2023 04/27/2023 10:59 AM EDT us Bradley Myers MD LAB PATHOLOGY ORDERABLES Fin al Result [facility] [address] [place] [address] documented in this encounter Visit Diagnoses Diagnosis Functional dyspepsia Dyspepsia and other specified disorders of function of stomach documented in this encounter Additional Health Concerns Assessment Noted Time A fall risk assessment has been complete d for the patient 04/03/2023 1:47 PM EST A Body Mass Index follow-up plan has been documented for the patient 04/04/2023 9:07 AM EST documented as of this encounter Care Teams Artificial Stone Setter Relationship Specialty Start Date End Date Nicole Brady MD [address] [place] [address] PCP - General 06/26/20 documented as of this encounter
--- OUTSIDE RECORDS SUMMARY | 2024-08-02 13:49 | XMS_ITS | Encounter Summary ---
Author Organization [facility] Address [address] [place] [address] Care Team Providers Care Mobile Equipment Mechanic Name Role Phone Nicole Brady MD Primary Care Provider [phone] Reason for Visit * Reason Onset Date Comments HCN Clinical Concern/Question 05/21/2024 Encounter Details Date Type Department Care Team (Late st Contact Info) Description 05/21/2024 Telephone Physical Medicine & [facility] at [facility] [address] [place] [address] Rubén Hunter, DO [address] [place] [address] HCN Clinical Concern/Question Social History Tobacco Use Types Packs/Day Years [...] How often do you attend chur or mandaen services? Never 09/06/2023 Do you belong to any clubs o r organizations such as yarsanism groups, unions, fraternal or athletic groups, or [...] Recorded Patient Health Questionnaire-2 Score 0 04/30/2024 [facility] - Occupational [...] place to sleep or slept in a detention (including now)? No 09/06/2023 PHQ-9 Answer Date [...] any time in the past 12 m [facility], were you homeless or living in a detention (including now)? No 02/27/2024 Utilities Answer Date Recorded In the past 12 months has th e [employer], gas, oil, or water [employer] threatened to shut off services in your home? No 02/27/2024 PHQ-2A Answer Date Recorded Patient Health Questionnaire-2 Score 1 12/21/2022 Comments No Sex and Gender Information Value Date Recorded Sex Assigned at Female 08/27/2020 3:26 PM EDT Legal Sex Female 6:28 PM EDT Gender Identity Female 08/27/2020 3:26 PM EDT Sexual Orientation Not on file documented as of this encounter Functional Status * Calculated C-SSRS [...] as of this encounter Miscellaneous Notes * Telephone Encounter - Bishop Gallagher - 05/21/2024 9:26 AM EDT Therapy order sent to [facility] [place] [id number] * Telephone Encounter - Blanca Tinoco - 05/21/2024 9:13 AM EDT Paperwork/Documentation Request Patient Name: Jessie Nicole Type: Karen with [employer] [facility] is requesting Dr. Hunter patient PT order Due Date: unknown date Send To: fax: [phone] Best contact number: Other: [phone] Optimal time of day to reach caller: ANYTIME Additional comments/information from caller: None Note: Please do not reply to this message. Follow-up communication and further actions as a result of this message need to be communicated with the patient directly, if the patient is not active onMyChart. If the patient is active on MyChart, they will receive notification of the communication/outcome via Receepthart. documented in this encounter Plan of Treatment Upcoming Encounters Date Type Department Care Team (Late st Contact Info) Description 10/01/2024 3:15 PM EDT Appointment [facility] [address] [address] documented as of this encounter Visit Diagnoses Not on filedocumented in this encounter Additional Health Concerns Assessment Noted Time PHQ-9 Depression Total Score: 0 02/26/19 25 9:18 AM EST A fall risk assessment has been complete d for the patient 04/30/2024 7:58 AM EDT A Body Mass Index follow-up plan has been documented for the patient 04/30/2024 8:51 AM EDT documented as of this encounter Care Teams Mobile Equipment Mechanic Relationship Specialty Start Date End Date Nicole Brady MD [address] [place] [phone] PCP - General 06/26/20 documented as of this encounter
--- OUTSIDE RECORDS SUMMARY | 2024-08-02 13:49 | XMS_ITS | Encounter Summary ---
Author Organization [facility] Address [address] [place] [address] Care Team Providers Care Idea Man Name Role Phone Nicole Brady MD Primary Care Provider [phone] Encounter Details Date Type Department Care Team (Latest Contact Info) Description 06/19/2024 Travel Social History Tobacco Use Types Packs/Day Years [...] 09/06/2023 How often do you attend chur ch or temple services? Never 09/06/2023 Do you belong to any clubs o r organizations such as bahai groups, unions, fraternal or athletic groups, or [...] Recorded Patient Health Questionnaire-2 Score 0 04/30/2024 [facility] of Occupat ional [facility] - Occupational Stress Questionnaire Answer Date Recorded [...] place to sleep or slept in a snf (including now)? No 09/06/2023 PHQ-9 Answer Date [...] any time in the past 12 m [facility], were you homeless or living in a snf (including now)? No 02/27/2024 Utilities Answer Date [...] Camryn Babin 6. Suicidal Behavior (Lifetime) No 5 8:07 AM EDT Camryn Babin documented as of this encounter Plan of Treatment Upcoming Encounters Date Type Department Care Team (Late st Contact Info) Description 10/01/2024 3:15 PM EDT Appointment [facility] [address] [address] documented as of this encounter Visit Diagnoses [...] documented as of this encounter Care Teams Idea Man Relationship Specialty Start Date End Date Nicole Brady MD [address] [place] [address] PCP - General 06/26/20 documented as of this encounter
--- OUTSIDE RECORDS SUMMARY | 2024-08-02 13:49 | XMS_ITS | Encounter Summary ---
Author Organization [facility] Address [facility] [place] [address] Care Team Providers Care Machine Silk Screen Printer Name Role Phone Nicole Brady MD Primary Care Provider [phone] Reason for Visit * Reason Comments Med Refill Encounter Details Date Type Department Care Team (Late st Contact Info) Description 06/25/2021 Refill [facility] Community Medicine [address] [place] [address] Nicole Brady MD [address] [place] [address] Social History Tobacco Use Types Packs/Day Years Used Date Smoking Tobacco: Former Cigarettes 1 29 1 - 11/13/2013 Smokeless Tobacco: Never Alcohol Use Standard Drinks/Week Comments Yes 0 (1 standard drink = 0.6 oz pur e alcohol) PHQ-2 Answer Date Recorded Patient Health Questionnaire-2 Score 0 06/29/2021 Comments Unknown Sex and Gender Information Value Date Recorded Sex Assigned at Female 08/27/2020 3:26 PM EDT Legal Sex Female 6:28 PM EDT Gender Identity Female 08/27/2020 3:26 PM EDT Sexual Orientation Not on file COVID-19 Exposure Response Date Recorded In the last 10 days, have yo u been in contact with someone who was confirmed or suspected to have Coronavirus/COVID-19? No / Unsure 05/31/2021 2:08 PM EDT documented as of this encounter Miscellaneous Notes * Telephone Encounter - Kelli Nguyen - 06/29/2021 9:25 AM EDT Appt scheduled and a 1 month supply sent * Telephone Encounter - Nicole Adams MD - 06/29/2021 6:15 AM EDT Needs appt and labs documented in this encounter Plan of Treatment Upcoming Encounters Date Type Department Care Team (Late st Contact Info) Description 10/01/2024 3:15 PM EDT Appointment [facility] [address] [address] documented as of this encounter Visit Diagnoses Not on filedocumented in this encounter Additional Health Concerns Assessment Noted Time A fall risk assessment has been complete d for the patient 10/07/2020 2:00 PM EDT documented as of this encounter Care Teams Machine Silk Screen Printer Relationship Specialty Start Date End Date Nicole Brady MD [address] [place] [address] PCP - General 06/26/20 documented as of this encounter
--- OUTSIDE RECORDS SUMMARY | 2024-08-02 13:49 | XMS_ITS | Encounter Summary ---
Author Organization [facility] Address [address] [place] [address] Care Team Providers Care Emergency Medical Technician Basic Name Role Phone Nicole Brady MD Primary Care Provider [phone] Encounter Details Date Type Department Care Team (Late Contact Info) Description 03/22/2021 Outside Procedure External Location [address] [place] [address] Nicole Brady MD [address] [place] [address] Social History Tobacco Use Types Packs/Day Years Used Date Smoking Tobacco: Former Cigarettes 1 29 1 - 11/13/2013 Smokeless Tobacco: Never Alcohol Use Standard Drinks/Week Comments Yes 0 (1 standard drink = 0.6 oz pur e alcohol) PHQ-2 Answer Date Recorded Patient Health Questionnaire-2 Score 0 11/13/2020 Comments Unknown Sex and Gender Information Value Date Recorded Sex Assigned at Female 08/27/2020 3:26 PM EDT Legal Sex Female 6:28 PM EDT Gender Identity Female 08/27/2020 3:26 PM EDT Sexual Orientation Not on file COVID-19 Exposure Response Date Recorded In the last month, have you been in contact with someone who was confirmed or suspected to have Coronavirus / COVID-19? Yes 03/14/2021 7:23 PM EST documented as of this encounter Plan of Treatment Upcoming Encounters Date Type Department Care Team (Late Contact Info) Description 10/01/2024 3:15 PM EDT Appointment [facility] [address] [address] documented as of this encounter Procedures Procedure Name Priority Date/Time Associated Diagnosis Comments CT CHEST LIMITED HISTORICAL 03/22/2021 3:19 PM EST documented in this encounter Results * CT Chest Limited Historical (03/22/2021 3:19 PM EST) Anatomical Region Laterality Modality Chest Computed Tomogra phy 03/22/2021 3:19 PM EST Narrative 03/23/2021 11:12 AM EST [address] [place] [address] Name: Jessie Nicole Exam Date: 03/22/2021 : 1975 Age 45 Gender: F Physician: NICOLE JONES Facility: [facility] Facility HSV: Outpatient Exam: CT CHEST W/O EXAM: CT CHEST WITHOUT IV CONTRAST INDICATION: SOB , chest pain TECHNIQUE: Helical CT chest without IV contrast was performed. Axial images were obtained from the lung apex to the mid abdomen by computed tomography. This study was performed with techniques to keep radiation doses as low as reasonably achievable, (ALARA). Individualized dose reduction techniques using automated exposure control or adjustment of mA and/or kV according to the patient size were employed. Coronal and sagittal reformats was performed. COMPARISON: None FINDINGS: CHEST: Thyroid: Unremarkable. Heart: No cardiomegaly. No pericardial effusion. Vascular: Thoracic aorta is normal caliber. Pulmonary arteries are normal caliber. No coronary artery calcifications. Lymph Nodes: No mediastinal or hilar lymphadenopathy. No axillary or supraclavicular lymphadenopathy. Lungs/Airways: Mild to moderate centrilobular emphysema. Mild linear atelectasis versus scarring at left lung base. No focal consolidation. Partially calcified granuloma the right lung base. No suspicious pulmonary nodule or mass. No pleural effusion. No pneumothorax. Airways are patent. Esophagus: Unremarkable. Upper Abdomen: Prior sleeve gastrectomy, cholecystectomy, otherwise no acute upper abdomen findings.. Bones: No suspicious lesion Soft tissues: No suspicious mass IMPRESSION: 1. No acute process.2. Emphysema. Dictated By: Octavia Kyle Transcribed By: Octavia Rolle Transcribed On: 03/23/2021 11:01 AM Electronically signed by: Octavia Kyle 03/23/2021 Thank you for referring Jessie Nicole to [facility]. Legally authenticated by FÉLIX HERMOSILLO 2021-03-23 11:01:34 Procedure Note Provider, [facility] [place] - 03/23/2021 [place] [address] Name: Jessie Nicole Exam Date: 03/22/2021 : 1975 Age 45 Gender: F Physician: NICOLE JONES Facility: [facility] Facility HSV: Outpatient Exam: CT CHEST W/O EXAM: CT CHEST WITHOUT IV CONTRAST INDICATION: SOB , chest pain TECHNIQUE: Helical CT chest without IV contrast was performed. Axialimages were obtained from the lung apex to the mid abdomen by computedtomography. This study was performed with techniques to keep radiation doses as lowas reasonably achievable, (ALARA). Individualized dose reduction techniquesusing automated exposure control or adjustment of mA and/or kV according tothe patient size were employed. Coronal and sagittal reformats wasperformed. COMPARISON: None FINDINGS: CHEST: Thyroid: Unremarkable. Heart: No cardiomegaly. No pericardial effusion. Vascular: Thoracic aorta is normal caliber. Pulmonary arteries arenormal caliber. No coronary artery calcifications. Lymph Nodes: No mediastinal or hilar lymphadenopathy. No axillary or supraclavicular lymphadenopathy. Lungs/Airways: Mild to moderate centrilobular emphysema. Mild linear atelectasis versus scarring at left lung base. No focal consolidation. Partially calcified granuloma the right lung base. No suspiciouspulmonary nodule or mass. No pleural effusion. No pneumothorax. Airways arepatent. Esophagus: Unremarkable. Upper Abdomen: Prior sleeve gastrectomy, cholecystectomy, otherwise noacute upper abdomen findings.. Bones: No suspicious lesion Soft tissues: No suspicious mass IMPRESSION: 1. No acute process.2. Emphysema. Dictated By: Octavia Kyle Transcribed By: Octavia Rolle Transcribed On: 03/23/2021 11:01 AM Electronically signed by: Octavia Kyle 03/23/2021 Thank you for referring Jessie Nicole to [facility]. Legally authenticated by FÉLIX HERMOSILLO 2021-03-23 11:01:34 Nicole Brady MD IMG CT PROCEDURES Final Result documented in this encounter Visit Diagnoses Not on filedocumented in this encounter Additional Health Concerns Assessment Noted Time A fall risk assessment has been complete d for the patient 10/07/2020 2:00 PM EDT documented as of this encounter Care Teams Emergency Medical Technician Basic Relationship Specialty Start Date End Date Nicole Brady MD [address] [place] [phone] PCP - General 06/26/20 documented as of this encounter
--- OUTSIDE RECORDS SUMMARY | 2024-08-02 13:49 | XMS_ITS | Encounter Summary ---
Author Organization [facility] Address [address] [place] [address] Care Team Providers Care Top Inventory Control Executive Name Role Phone Nicole Brady MD Primary Care Provider [phone] Encounter Details Date Type Department Care Team (Late st Contact Info) Description 04/27/2023 Outside Procedure [address] [address] Provider, External Social History Tobacco Use Types Packs/Day Years [...] [facility] [address] [phone] documented as of this encounter Procedures Procedure Name Priority Date/Time Associated Diagnosis Comments EGD 04/27/2023 9:14 AM EDT documented in this encounter Results * EGD (04/27/2023 9:14 AM EDT) Anatomical Region Laterality Modality Endoscopy 04/27/2023 9:01 AM EDT Impressions 04/27/2023 9:14 AM EDT Please see media tab for the result. Information added by interface. Narrative Procedure Note Bradley Myers MD - 04/27/2023 IMPRESSION: Please see media tab for the result. Information added by interface. us External Provider GI PROCEDURE ORDERABLES Final Result documented in this encounter Visit Diagnoses Not on filedocumented in this encounter Additional Health Concerns Assessment Noted Time A fall risk assessment has been complete d for the patient 04/03/2023 1:47 PM EST A Body Mass Index follow-up plan has been documented for the patient 04/04/2023 9:07 AM EST documented as of this encounter Care Teams Top Inventory Control Executive Relationship Specialty Start Date End Date Nicole Brady MD [address] [place] [address] PCP - General 06/26/20 documented as of this encounter
--- OUTSIDE RECORDS SUMMARY | 2024-08-02 13:49 | XMS_ITS | Encounter Summary ---
Author Organization [facility] Address [address] [place] [address] Care Team Providers Care Supervisor Electric Name Role Phone Nicole Brady MD Primary Care Provider [phone] Encounter Details Date Type Department Care Team (Latest Contact Info) Description 06/20/2024 Travel Social History Tobacco Use Types Packs/Day [...] often do you attend chur ch or gnosticism services? Never 09/06/2023 Do you belong to any clubs o r organizations such as christian groups, unions, fraternal or athletic groups, or [...] Recorded Patient Health Questionnaire-2 Score 0 04/30/2024 [facility] of Occupat ional [facility] - Occupational Stress Questionnaire Answer Date Recorded [...] place to sleep or slept in a senior living (including now)? No 09/06/2023 PHQ-9 Answer Date [...] any time in the past [address] [facility], were you homeless or living in a senior living (including now)? No 02/27/2024 Utilities Answer Date [...] [facility] [address] [address] documented as of this encounter Visit Diagnoses [...] documented as of this encounter Care Teams Supervisor Electric Relationship Specialty Start Date End Date Nicole Brady MD [address] [address] PCP - General 06/26/20 documented as of this encounter
--- OUTSIDE RECORDS SUMMARY | 2024-08-02 13:49 | XMS_ITS | Clinical Summary ---
Author Organization [facility] Address [address] [place] [address] Care Team Providers Care Clean Up Supervisor Name Role Phone Nicole Brady MD Primary Care Provider [phone] Allergies Active Allergy Reactions Criticality Noted Date Comments Influenza Vaccines Other - please document in the comment field Low 12/16/2021 Influenza Virus Vaccine Other - please document in the comment field Low 11/22/2017 Rhabdo Iodinated Contrast Media Other - please document in the comment field Low 12/16/2021 IV contrast only Iv Contrast Hives Medium 10/07/2020 Other Rash Low 05/22/2016 Pt takes pre med of tagament and benadryl and no reaction Medications acetaminophen (Tylenol) 325 MG tablet Take 2 tablets (650 mg) by mouth if needed. Active atenolol (Tenormin) 25 MG tablet Take 1 tablet (25 mg) by mouth 1 (one) time each day. 05/05/2014 Active multivitamin (Theragran-M) tablet Take 1 tablet by mouth 1 (one) time each day. Active levothyroxine (Synthroid, Levoxyl) 150 MCG tabletIndicatio ns:Hypothyroidi sm, goitrous TAKE 1 TABLET(150 MCG) BY MOUTH 1 TIME EACH DAY 90 tablet 2 10/04/2023 Active ibuprofen 200 MG tablet Take 2 tablets (400 mg) by mouth every 8 (eight) hours if needed for mild pain. Active cyclobenzaprine (Flexeril) 10 MG tabletIndicatio ns:Chronic left shoulder pain Take 1 tablet (10 mg) by mouth at night if needed (shoulder/juancho int pain). 30 tablet 3 12/28/2023 Active lansoprazole (Prevacid) [address] capsule Take 1 capsule (30 mg) by mouth 2 (two) times a day. 12/05/2023 Active methocarbamol (Robaxin) 500 MG tablet Take 1 tablet (500 mg) by mouth 2 (two) times a day. 60 tablet 3 12/28/2023 Active Semaglutide-Yovany ght Management (Wegovy) 2.4 MG/0.75ML solution auto-injectorIn dications:Morbi d obesity (CMS/HCC) Inject 2.4 mg under the skin 1 time per week. 3 mL 11 06/19/2024 Active Active Problems Problem Noted Date Diagnosed Date Severe obesity (BMI 35.0-39.9) with comorbidity 02/27/2024 Skin lesion of chest wall 02/27/2024 Bilateral arm weakness 02/27/2024 Arthralgia 02/27/2024 Muscle pain 02/27/2024 Chronic left shoulder pain 12/28/2023 Other osteoarthritis of spine 12/28/2023 Thoracic radiculopathy 12/28/2023 Breast pain, left 12/28/2023 Left knee pain 10/12/2023 Allergic rhinitis 12/21/2022 12/21/2022 Atypical angina 12/21/2022 12/21/2022 Cervical radiculopathy at C7 12/21/202209/2022 COVID-19 12/21/2022 12/21/2022 Daytime somnolence 12/21/2022 12/21/2022 Dyspnea on exertion 12/21/2022 12/21/2022 Electrocardiogram abnormal 12/21/202212/21 Fatigue 12/21/2022 12/21/2022 Fluid level behind tympanic membrane of left ear 12/21/2022 12/21/2022 Headache 12/21/2022 12/21/2022 Hypertensive heart disease 12/21/202212/21 Lung granuloma 12/21/2022 12/21/2022 Papilledema 12/21/2022 12/21/2022 Paroxysmal ventricular tachycardia 12/21/2022 12/21/2022 Pulmonary emphysema 12/21/2022 12/21/2022 Pulmonary HTN 12/21/2022 12/21/2022 Sinus bradycardia 12/21/2022 12/21/2022 Smoking greater than 30 pack years 12/21/2022 12/21/2022 Snoring 12/21/2022 12/21/2022 Status post cholecystectomy 12/21/2022 11/0 09/2022 Prediabetes 07/27/2021 Encounter for screening mammogram for breast can cer 07/27/2021 Left sided sciatica 07/27/2021 Morbid obesity with body mass index (BMI) of 40. 0 or higher 03/15/2021 Chest pain 03/15/2021 Sore throat 12/10/2020 Hyperlipidemia 08/27/2020 Hypothyroidism 08/27/2020 Overview (08/27/2020): s/p partial (3/4) thyroidectomy for benign adenoma Anemia 06/24/2020 Depression 06/17/2020 Hypertension 06/17/2020 Hypothyroidism, goitrous 06/17/2020 IBS (irritable bowel syndrome) 05/08/2020 Alternating constipation and diarrhea 01/20/2020 Migraine 11/22/2019 Overview (08/27/2020): avoids artificial sweeteners Obstructive sleep apnea 08/06/2015 Overview (08/27/2020): on CPAP HS SETTING OF 4 Morbid obesity 04/15/2015 Pulmonary hypertension due t o left ventricular diastolic dysfunction 04/15/2015 Gastroesophageal reflux disease with esophagitis 06/09/2014 Colloid cyst of third ventricle 08/07/2013 Overview (08/27/2020): benign/asymptomatic, yearly MRIs - last 09/2014. Encounters Date Type Department Care Team Description 06/20/2024 9:30 AM EDT Procedure Visit [facility] [address] [place] [address] Jeffery Balderas, Radiculopathy, cervical region 06/20/2024 Results Follow-Up [facility] [address] [place] [address] Nicole Brady MD 06/20/2024 Travel 06/19/2024 8:00 AM EDT Office Visit [facility] [address] [place] [address] Nicole Brady MD Recent urinary tract infection (Primary Dx); Pseudomonas urinary tract infection; Morbid obesity (CMS/HCC); Other specified hypothyroidism 06/19/2024 Travel 05/23/2024 Telephone [facility] [address] [place] [address] Fara Post RN 05/21/2024 Telephone [facility] [address] [place] [address] Rubén Hunter DO [facility] Clinical Concern/Question 05/19/2024 Refill [facility] [address] [place] [address] Nicole Brady MD Severe obesity (BMI 35.0-39.9) with comorbidity (CMS/HCC) 05/14/2024 Telephone [facility] [address] [place] [address] Rubén Hunter DO [facility] - Patient Message from Last 3 Months Immunizations Immunization Administration Dates Next Due Hep B, adult 11/13/2020 Influenza, Unspecified 10/20/2022,12/08/2011,02/2008 MMR 11/17/2020 Novel [id number], all formulations 2008 Pfizer-BioNTTaxiMe COVID-19 Vac cine (Purple Cap) 12+ 03/17/2020,02/25/2020 Td (adult), unspecified 02/14/2004 Tdap 11/13/2020 Family History Medical History Relation Name Comments Alcohol abuse Brother 1 Michael Alcohol abuse Brother 2 Rigo Depression Brother 2 Rigo Drug abuse Brother 2 Rigo Alcohol abuse Father Keyur Early natural Father Keyur Emphysema Father Keyur Arthritis Mother Alicia Autoimmune disease Mother Alicia Cardiac disorder Mother Alicia Coronary artery disease Mother Alicia Depression Mother Alicia Heart disease Mother Alicia Heart failure Mother Alicia Rheumatologic disease Mother Alicia Colon cancer Sister half sister Breast cancer Neg Hx Relation Name Status Comments Brother 1 Michael Brother 2 Rigo Father Keyur Mother Alicia Sister half sister Alive Social History Tobacco Use Types Packs/Day Years [...] How often do you attend chur or worship services? Never 09/06/2023 Do you belong to any clubs o r organizations such as baptist groups, unions, fraternal or athletic groups, or [...] Recorded Patient Health Questionnaire-2 Score 0 04/30/2024 [facility] - Occupational [...] place to sleep or slept in a fdc (including now)? No 09/06/2023 PHQ-9 Answer Date [...] any time in the past 12 m [facility], were you homeless or living in a fdc (including now)? No 02/27/2024 Utilities Answer Date Recorded In the past 12 months has th e [employer]HS[employer], gas, oil, or water [employer] threatened to shut off services in your home? No 02/27/2024 PHQ-2A Answer Date Recorded Patient Health Questionnaire-2 Score 1 12/21/2022 Comments No Sex and Gender Information Value Date Recorded Sex Assigned at Female 08/27/2020 3:26 PM EDT Legal Sex Female 6:28 PM EDT Gender Identity Female 08/27/2020 3:26 PM EDT Sexual Orientation Not on file Last Filed Vital Signs Vital Sign Reading Time Taken Comments Blood Pressure 117/77 06/20/2024 9:36 AM EDT Pulse 64 06/20/2024 9:36 AM EDT Temperature 36.7 C (98.1 F) 06/19/2024 8:02 AM EDT Respiratory Rate 16 06/19/2024 8:02 AM EDT Oxygen Saturation 98% 06/20/2024 9:36 AM EDT Inhaled Oxygen Concentration - - Weight 105 kg (231 lb) 06/20/2024 9:36 AM EDT Height 167.6 cm (5' 6 ) 06/20/2024 9:36 AM EDT Body Mass Index 37.28 06/20/2024 9:36 AM EDT Plan of Treatment Upcoming Encounters Date Type Department Care Team (Late st Contact Info) Description 10/01/2024 3:15 PM EDT Appointment [facility] [address] [phone] Health Maintenance Due Date Last Done Comments [facility]-HIV Screening 1974 [facility]-/Child/Adol SDOH Screenings 1974 [facility]-Pneumococcal Vaccine: Pediatrics (0 to 5 Years) and At-Risk Patients (6 to 49 Years) (1 of 2 - PCV) 1993 [facility]-Pap Smear 10/30/1995 [facility]-Cervical Cancer Screening 2004 [facility]-HPV/Cotest 2004 CT Colonography 10/30/2019 [facility]-DNA 10/30/2019 FIT 10/30/2019 FOBT 10/30/2019 Sigmoidoscopy 10/30/2019 [id number] Vaccine (3 - Pfizer risk series) 04/14/2020 03/17/2020, 02/25/2020 [facility]-Hepatitis B Vaccines (2 of 3 - 19+ 3-dose series) 12/11/2020 11/13/2020 [facility]-Diabetes: Hemoglobin A1C 01/31/2024, 08/20/2021, 06/17/2020 [facility]- SDOH Screenings 08/26/2024 [facility]-Adult SDOH Screenings 08/26/2024 02/27/2024 [facility]-Influenza Vaccine (Season Ended) 2024 10/20/2022, 12/08/2011, 11/13/2008, Additional history exists [facility]-Zoster Vaccines (1 of 2) 2024 [facility]-Depression Screening 04/30/2025 04/30/2024, 02/13 Colonoscopy 01/02/2030 01/03/2020 [facility]-Colorectal Cancer Screening 01/02/2030 [facility]-DTaP,Tdap,and Td Vaccines (2 - Td or Tdap) 11/13/2030 11/13/2020, 02/14/2004 [facility]-Hepatitis C Screening Completed 12/04/2017, 12/2017 [facility]-Obesity Intervention Completed 025, 06/19/2024, 04/30/2024, Additional history exists HPV Vaccines Aged Out No longer eligi ble based on patient's age to complete this topic [facility]-HIB Vaccines Aged Out No longer e ligible based on patient's age to complete this topic [facility]-Hepatitis A Vaccines Aged Out No longer eligible based on patient's age to complete this topic [facility]-IPV Vaccines Aged Out No longer e ligible based on patient's age to complete this topic [facility]-Rotavirus Vaccines Aged Out No lo nger eligible based on patient's age to complete this topic Procedures Procedure Name Priority Date/Time Associated Diagnosis Comments EMG / NERVE CONDUCTION STUDY Routine 06/20/2024 9:30 AM EDT Radiculopathy, cervical region TSH Routine 06/19/2024 8:28 AM EDT Other specified hypothyroidism URINE CULTURE Routine 06/19/2024 8:19 AM EDT Recent urinary tract infection Pseudomonas urinary tract infection HEMOGLOBIN A1C Routine 01/30/2023 10:41 AM EST H/O gastric sleeve COLONOSCOPY 01/03/2020 HEPATITIS C ANTIBODY - ED W/REFLEX TO HCV QUANT PCR Routine 12/04/2017 10:26 PM EDT from Last 3 Months or Most Recently Relevant to Health Maintenance Results * EMG / NERVE CONDUCTION STUDY [...] yes Risks discussed: Bleeding, infection and pain [place] protocol: Procedure explained and questions answered to [...] Cruz MD NEUROLOGY ORDERABLES Final Re sult * (ABNORMAL) Thyroid Stimulating Hormone, Plasma (06/19/2024 8:28 AM EDT) Thyroid Stimulating Hormone, Plasma 0.35(L) 0.40 - 4.20 uIU/mL 06/19/2024 2:49 PM EDT [facility] Blood Venous blood specimen / Unknown Venipuncture / Unknown 06/19/2024 8:28 AM EDT 06/19/2024 8:28 AM EDT Narrative [facility] - 06/19/2024 2:49 PM EDT Trimester Specific Ranges TSH ( IU/mL) 1st Trimester 0.1 - 3.0 2nd Trimester 0.19 - 4.06 3rd Trimester 0.3 - 3.7 us Nicole Brady MD LAB BLOOD ORDERABLES Final Res ult Performing Organization Address City/[facility]/ZIP Co de Phone Number [facility] [address] [place] [address] * (ABNORMAL) Urine Culture (06/19/2024 8:19 AM EDT) Pathologist [facility] Culture <10,000 CFU/mL Gram positive cocci(A) 06/21/2024 12:39 PM EDT [facility] Comment:Organisms not identi fied due to low colony count with no indication of pyuria, dysuria, urethritis, hematuria, and/or pyelonephritis. Urine Urine specimen obtained by clean catch procedure / Unknown Non-blood Collection / Unknown 06/19/2024 8:19 AM EDT 06/19/2024 8:19 AM EDT us Nicole Brady MD LAB MICROBIOLOGY - GENERAL ORD ERABLES Final Result Performing Organization Address City/[facility]/ZIP Co de Phone Number [facility] [address] [place] [address] * Hemoglobin A1c (01/30/2023 10:41 AM EST) Hemoglobin A1c 5.5 <5.7 % 01/30/2023 2:16 PM EST [facility] Blood Venous blood specimen / Unknown Venipuncture / Unknown 01/30/2023 10:41 AM EST 01/30/2023 10:43 AM EST Narrative [facility] - 01/30/2023 2:16 PM EST HA1C Interpretive Data: Diagnosis of Diabetes: Diabetic > or = 6.5% Pre-diabetic 5.7 to 6.4% Non-diabetic < or = 5.6% Glycemic Targets for Type I and Type II Diabetics: Non- Adults <7.0% Adults <6.0% Children and Adolescents <7.5% Source: [place] [employer]. Standards of medical care in diabetes,2017. Diabetes Care.2017:40 (suppl 1):S1-S135. HbA1c assay performed by an ion-exchange chromatography method that is certified traceable to the DCCT. Bradley Myers MD LAB BLOOD ORDERABLES Final R esult [facility] [address] [place] [address] * COLONOSCOPY (01/03/2020) Anatomical Region Laterality Modality Endoscopy Narrative 01/03/2020 Ordered by an unspecified provider. Historical Provider GI PROCEDURE ORDERABLES F inal Result * Ashwini Hepatitis C Antibody (12/04/2017 10:26 PM EDT) Ashwini Hepatitis C Ab NEGATIVE Reference Range: Negative [facility] 12/04/2017 10:2 6 PM EDT 12/04/2017 10:30 PM EDT Berto Vargas MD LAB BLOOD ORDERABLES Final Re sult [facility] from Last 3 Months or Most Recently Relevant to [place] [address] [id number] ANTH Care Teams Clean Up Supervisor Relationship Specialty Start Date End Date Nicole Brady MD [address] [place] [address] PCP - General 06/26/20
--- OUTSIDE RECORDS SUMMARY | 2024-08-02 13:49 | XMS_ITS | Encounter Summary ---
Author Organization [facility] Address [address] [place] [address] Care Team Providers Care Roof Tile Layer Name Role Phone Nicole Brady MD Primary Care Provider [phone] Encounter Details Date Type Department Care Team (Late st Contact Info) Description 06/20/2024 Results Follow-Up [facility] [address] [place] [address] Nicole Brady MD [address] [place] [address] Social History Tobacco Use Types [...] often do you attend chur ch or sikhism services? Never 09/06/2023 Do you belong to any clubs o r organizations such as shinto groups, unions, fraternal or athletic groups, or [...] Recorded Patient Health Questionnaire-2 Score 0 04/30/2024 [facility] - Occupational [...] to sleep or slept in a senior care (including now)? No 09/06/2023 PHQ-9 Answer Date [...] any time in the past 12 m [facility], were you homeless or living in a senior care (including now)? No 02/27/2024 Utilities Answer Date [...] [facility] [address] [address] documented as of this encounter Visit Diagnoses [...] documented as of this encounter Care Teams Roof Tile Layer Relationship Specialty Start Date End Date Nicole Brady MD [address] [place] [address] PCP - General 06/26/20 documented as of this encounter
== END 2024-08-01 23:59 | disposition home or self-care (01) ==
LOC: LAB.DROPOF 08-02 13:47
PROVIDERS: PCP Student in an Organized Health Care Education/Training Program; Visit Provider Student in an Organized Health Care Education/Training Program
DX: R09.81 Nasal congestion (principal)
CPT/HCPCS: 87631